=== PATIENT | female | born 1980 | race Caucasian/White ===

== ENCOUNTER 2016-09-29 15:22 | Outpatient (CLI) | payer OTHER | END 2016-09-29 15:23 | disposition home or self-care (01) | DX: M77.32 Calcaneal spur, left foot (principal) ==

== ENCOUNTER 2016-10-01 10:04 | Outpatient (CLI) | payer OTHER | END 2016-10-01 10:05 | disposition home or self-care (01) | DX: M25.473 Effusion, unspecified ankle (principal) ==

== ENCOUNTER 2016-10-08 14:35 | Outpatient (CLI) | payer OTHER | END 2016-10-08 14:36 | disposition home or self-care (01) | DX: E11.9 Type 2 diabetes mellitus without complications (principal); M05.9 Rheumatoid arthritis with rheumatoid factor, unspecified; M25.473 Effusion, unspecified ankle ==

== ENCOUNTER 2017-07-05 09:36 | Outpatient (CLI) | payer OTHER ==
[2017-07-05 12:59] LABS: BASOPHILS # (AUTO) 0.1 10^3/uL (0.0-0.1); BASOPHILS % (AUTO) 0.5 %; EOSINOPHILS # (AUTO) 0.7 10^3/uL (0.0-0.7); HGB - HEMOGLOBIN 12.7 g/dL (12.0-16.0); LYMPHOCYTES % (AUTO) 27.5 %; MEAN CORPUSCULAR HEMOGLOBIN 28.9 pg (27.0-31.0); MEAN CORPUSCULAR HGB CONC 33.3 g/dL (32.0-36.0); MEAN CORPUSCULAR VOLUME 86.7 fL (81.0-99.0); MEAN PLATELET VOLUME 9.7 fL (7.9-10.8); MONOCYTES # (AUTO) 0.5 10^3/uL (0.0-1.0); MONOCYTES % (AUTO) 4.2 %; NEUTROPHILS # (AUTO) 6.9 10^3/uL (1.5-6.6); NEUTROPHILS % (AUTO) 61.8 %; PLT - PLATELET COUNT 185 10^3/uL (130-450); RED BLOOD COUNT 4.41 10^6/uL (4.20-5.40); RED CELL DISTRIBUTION WIDTH 13.6 % (12.0-15.0); WHITE BLOOD COUNT 11.1 x10^3/uL (4.8-10.8)
== END 2017-07-05 09:37 | disposition home or self-care (01) ==
LOC: LAB.WCP 09:36
PROVIDERS: ATTEND Family Medicine
DX: N92.0 Excessive and frequent menstruation with regular cycle (principal)
CPT/HCPCS: 36415; 85025

== ENCOUNTER 2017-10-11 08:00 | Outpatient (CLI) | payer OTHER ==
[2017-10-11 19:01] LABS: CALCIUM 9.1 mg/dL (8.5-10.3); CREATININE 0.7 mg/dL (0.4-1.0)
[2017-10-11 19:43] LABS: HB2 TOTAL 15.7 g/dL; HEMOGLOBIN A1C 1.28 g/dL; HEMOGLOBIN A1C % 9.6 % (4.6-6.2)
== END 2017-10-11 08:01 | disposition home or self-care (01) ==
LOC: LAB.WCP 08:00
PROVIDERS: ATTEND Family Medicine
DX: E11.9 Type 2 diabetes mellitus without complications (principal)
CPT/HCPCS: 36415; 80048; 83036

== ENCOUNTER 2018-01-21 07:16 | Outpatient (CLI) | payer OTHER ==
[2018-01-21 13:38] LABS: BASOPHILS # (AUTO) 0.1 10^3/uL (0.0-0.1); BASOPHILS % (AUTO) 0.7 %; EOSINOPHILS # (AUTO) 0.5 10^3/uL (0.0-0.7); EOSINOPHILS % (AUTO) 4.4 %; HGB - HEMOGLOBIN 13.3 g/dL (12.0-16.0); LYMPHOCYTES # (AUTO) 3.3 10^3/uL (1.5-3.5); LYMPHOCYTES % (AUTO) 26.7 %; MEAN CORPUSCULAR HGB CONC 32.9 g/dL (32.0-36.0); MEAN PLATELET VOLUME 10.1 fL (7.9-10.8); MONOCYTES # (AUTO) 0.6 10^3/uL (0.0-1.0); MONOCYTES % (AUTO) 4.5 %; NEUTROPHILS # (AUTO) 7.9 10^3/uL (1.5-6.6); NEUTROPHILS % (AUTO) 63.7 %; PLT - PLATELET COUNT 199 10^3/uL (130-450); RED BLOOD COUNT 4.58 10^6/uL (4.20-5.40); RED CELL DISTRIBUTION WIDTH 13.6 % (12.0-15.0); WHITE BLOOD COUNT 12.4 x10^3/uL (4.8-10.8)
[2018-01-21 13:47] LABS: ALBUMIN 3.2 g/dL (3.2-5.5); ALBUMIN/GLOBULIN RATIO 0.8 (1.0-2.2); ALKALINE PHOSPHATASE 72 IU/L (42-121); ALT ALANINE AMINOTRANSFERASE 21 IU/L (10-60); AST ASPARTATE AMINOTRANSFERASE 19 IU/L (10-42); BILIRUBIN,TOTAL 0.5 mg/dL (0.2-1.0); BUN - BLOOD UREA NITROGEN 13 mg/dL (6-20); CALCIUM 8.7 mg/dL (8.5-10.3); CARBON DIOXIDE - CO2 27 mmol/L (21-32); CHLORIDE 102 mmol/L (101-111); CHOL/HDL RATIO 3.7 (<4.4); CHOLESTEROL 147 mg/dL; CREATININE 0.9 mg/dL (0.4-1.0); GFR - MDRD 70 (>89); GLUCOSE 145 mg/dL (70-100); HDL CHOLESTEROL 40 mg/dL; LDL CHOLESTEROL,CALCULATED 91 mg/dL; LDL/HDL RATIO 2.3 (<4.4); SODIUM 135 mmol/L (135-145); TOTAL PROTEIN 7.2 g/dL (6.7-8.2); VLDL CHOLESTEROL 16 mg/dL
[2018-01-21 13:55] LABS: HB2 TOTAL 14.2 g/dL; HEMOGLOBIN A1C 0.92 g/dL; HEMOGLOBIN A1C % 8.1 % (4.6-6.2)
== END 2018-01-21 07:17 ==
LOC: LAB.WCP 07:16
PROVIDERS: ATTEND Family Medicine
DX: E11.9 Type 2 diabetes mellitus without complications (principal)
CPT/HCPCS: 36415; 80053; 80061; 82043; 83036; 83721; 84443; 85025

== ENCOUNTER 2018-04-09 14:50 | Outpatient (CLI) | payer OTHER ==
[2018-04-09 19:05] LABS: HEMOGLOBIN A1C 0.81 g/dL; HEMOGLOBIN A1C % 7.4 % (4.6-6.2)
== END 2018-04-09 14:51 | disposition home or self-care (01) ==
LOC: LAB.WCP 14:50
PROVIDERS: ATTEND Family Medicine
DX: E11.9 Type 2 diabetes mellitus without complications (principal)
CPT/HCPCS: 36415; 83036

== ENCOUNTER 2018-07-07 12:10 | Outpatient (CLI) | payer OTHER ==
[2018-07-07 13:14] LABS: BASOPHILS % (AUTO) 0.4 %; EOSINOPHILS # (AUTO) 0.3 10^3/uL (0.0-0.7); EOSINOPHILS % (AUTO) 2.4 %; HGB - HEMOGLOBIN 14.3 g/dL (12.0-16.0); LYMPHOCYTES # (AUTO) 3.4 10^3/uL (1.5-3.5); LYMPHOCYTES % (AUTO) 24.5 %; MEAN CORPUSCULAR HEMOGLOBIN 29.6 pg (27.0-31.0); MEAN PLATELET VOLUME 8.9 fL (7.9-10.8); MONOCYTES # (AUTO) 0.5 10^3/uL (0.0-1.0); MONOCYTES % (AUTO) 3.8 %; NEUTROPHILS # (AUTO) 9.5 10^3/uL (1.5-6.6); NEUTROPHILS % (AUTO) 68.9 %; PLT - PLATELET COUNT 197 10^3/uL (130-450); RED BLOOD COUNT 4.81 10^6/uL (4.20-5.40); WHITE BLOOD COUNT 13.7 x10^3/uL (4.8-10.8)
[2018-07-07 13:24] LABS: ALBUMIN 3.7 g/dL (3.2-5.5); ALKALINE PHOSPHATASE 82 IU/L (42-121); ALT ALANINE AMINOTRANSFERASE 26 IU/L (10-60); AST ASPARTATE AMINOTRANSFERASE 23 IU/L (10-42); BILIRUBIN,TOTAL 0.6 mg/dL (0.2-1.0); BUN - BLOOD UREA NITROGEN 16 mg/dL (6-20); CALCIUM 8.9 mg/dL (8.5-10.3); CARBON DIOXIDE - CO2 26 mmol/L (21-32); CHLORIDE 102 mmol/L (101-111); CHOLESTEROL 180 mg/dL; CREATININE 0.7 mg/dL (0.4-1.0); GFR - MDRD 94 (>89); GLUCOSE 174 mg/dL (70-100); HDL CHOLESTEROL 45 mg/dL; LDL CHOLESTEROL,CALCULATED 116 mg/dL; LDL/HDL RATIO 2.6 (<4.4); SODIUM 136 mmol/L (135-145); TOTAL PROTEIN 7.5 g/dL (6.7-8.2); URIC ACID 4.4 mg/dL (2.6-7.2); VLDL CHOLESTEROL 19 mg/dL
[2018-07-07 13:28] LABS: HB2 TOTAL 14.7 g/dL; HEMOGLOBIN A1C 1.01 g/dL; HEMOGLOBIN A1C % 8.4 % (4.6-6.2)
== END 2018-07-07 12:11 | disposition home or self-care (01) ==
LOC: LAB 12:10
PROVIDERS: ATTEND Family Medicine
DX: E11.9 Type 2 diabetes mellitus without complications (principal); M05.9 Rheumatoid arthritis with rheumatoid factor, unspecified
CPT/HCPCS: 36415; 80053; 80061; 82043; 83036; 83721; 84443; 84550; 85025; 85651; 86140

== ENCOUNTER 2018-12-15 08:00 | Outpatient (CLI) | payer OTHER ==
[2018-12-15 19:01] LABS: CREATININE 0.8 mg/dL (0.4-1.0)
[2018-12-15 19:02] LABS: CALCIUM 9.2 mg/dL (8.5-10.3)
[2018-12-15 19:41] LABS: HEMOGLOBIN A1C 1.19 g/dL; HEMOGLOBIN A1C % 9.9 % (4.6-6.2)
== END 2018-12-15 23:59 | disposition home or self-care (01) ==
LOC: LAB.WCP 08:00
PROVIDERS: ATTEND Family Medicine
DX: E11.9 Type 2 diabetes mellitus without complications (principal)
CPT/HCPCS: 36415; 80048; 83036

== ENCOUNTER 2019-03-20 09:30 | Outpatient (CLI) | payer OTHER ==
--- NOTE | 2019-03-20 12:10 | XRAY Report ---
Reason: KNEE PAIN, RIGHT Procedure Date: 03/20/2019 Accession Number: [id number] / [id number] Procedure: XR - Knee 2 View RT CPT Code: FULL RESULT: EXAM: RIGHT KNEE RADIOGRAPHY EXAM DATE: 03/20/2019 09:47 AM. CLINICAL HISTORY: Knee pain, right. COMPARISON: None. TECHNIQUE: 2 views. FINDINGS: Bones: Small enthesophyte off the superior aspect of the patella. No fractures or bone lesions. Joints: Normal. No effusion. No subluxations. Soft Tissues: Normal. No soft tissue swelling. IMPRESSION: 1. No acute abnormality seen in the right knee. 2. Small enthesophyte off the superior aspect of the patella, correlate for signs of quadriceps tendinitis. RADIA
== END 2019-03-20 09:31 | disposition home or self-care (01) ==
LOC: DI 09:30
PROVIDERS: ATTEND Family Medicine
DX: M25.561 Pain in right knee (principal); M77.9 Enthesopathy, unspecified

== ENCOUNTER 2019-12-31 16:22 | Outpatient (CLI) | payer OTHER ==
[2019-12-31 18:31] LABS: BASOPHILS # (AUTO) 0.1 10^3/uL (0.0-0.1); BASOPHILS % (AUTO) 0.4 %; EOSINOPHILS # (AUTO) 0.6 10^3/uL (0.0-0.7); EOSINOPHILS % (AUTO) 3.9 %; HGB - HEMOGLOBIN 14.2 g/dL (12.0-16.0); LYMPHOCYTES # (AUTO) 4.3 10^3/uL (1.5-3.5); LYMPHOCYTES % (AUTO) 29.5 %; MEAN CORPUSCULAR HEMOGLOBIN 28.8 pg (27.0-31.0); MEAN CORPUSCULAR VOLUME 87.2 fL (81.0-99.0); MEAN PLATELET VOLUME 11.5 fL (7.9-10.8); MONOCYTES # (AUTO) 0.6 10^3/uL (0.0-1.0); NEUTROPHILS # (AUTO) 8.9 10^3/uL (1.5-6.6); NEUTROPHILS % (AUTO) 61.8 %; PLT - PLATELET COUNT 246 10^3/uL (130-450); RED BLOOD COUNT 4.93 10^6/uL (4.20-5.40); RED CELL DISTRIBUTION WIDTH 12.6 % (12.0-15.0); WHITE BLOOD COUNT 14.4 x10^3/uL (4.8-10.8)
[2020-01-01 13:55] LABS: RHEUMATOID FACTOR NEGATIVE (Negative)
[2020-01-04 15:24] LABS: ANA SCREEN NEGATIVE (NEGATIVE)
== END 2019-12-31 23:59 | disposition home or self-care (01) ==
LOC: LAB.WCP 16:22
PROVIDERS: ATTEND Nurse Practitioner
DX: M35.3 Polymyalgia rheumatica (principal); M08.00 Unspecified juvenile rheumatoid arthritis of unspecified site
CPT/HCPCS: 36415; 85025; 85651; 86038; 86140; 86430

== ENCOUNTER 2020-02-24 15:30 | Outpatient (CLI) | payer OTHER ==
[2020-02-24 18:41] LABS: BASOPHILS # (AUTO) 0.1 10^3/uL (0.0-0.1); BASOPHILS % (AUTO) 0.4 %; EOSINOPHILS # (AUTO) 0.5 10^3/uL (0.0-0.7); EOSINOPHILS % (AUTO) 4.1 %; HGB - HEMOGLOBIN 13.7 g/dL (12.0-16.0); LYMPHOCYTES # (AUTO) 3.8 10^3/uL (1.5-3.5); LYMPHOCYTES % (AUTO) 31.8 %; MEAN CORPUSCULAR HEMOGLOBIN 28.8 pg (27.0-31.0); MEAN CORPUSCULAR HGB CONC 31.8 g/dL (32.0-36.0); MEAN CORPUSCULAR VOLUME 90.5 fL (81.0-99.0); MEAN PLATELET VOLUME 11.3 fL (7.9-10.8); MONOCYTES # (AUTO) 0.6 10^3/uL (0.0-1.0); MONOCYTES % (AUTO) 5.1 %; NEUTROPHILS % (AUTO) 58.3 %; PLT - PLATELET COUNT 247 10^3/uL (130-450); RED BLOOD COUNT 4.76 10^6/uL (4.20-5.40); RED CELL DISTRIBUTION WIDTH 12.5 % (12.0-15.0); WHITE BLOOD COUNT 12.1 x10^3/uL (4.8-10.8)
[2020-02-24 18:55] LABS: CREATININE,URINE 80.3 mg/dL; MICROALBUMIN,URINE 0.4 mg/dL (0-300.0)
[2020-02-24 19:12] LABS: ALBUMIN 3.7 g/dL (3.2-5.5); ALBUMIN/GLOBULIN RATIO 0.9 (1.0-2.2); ALKALINE PHOSPHATASE 92 IU/L (42-121); ALT ALANINE AMINOTRANSFERASE 32 IU/L (10-60); AST ASPARTATE AMINOTRANSFERASE 31 IU/L (10-42); BILIRUBIN,TOTAL 0.3 mg/dL (0.2-1.0); BUN - BLOOD UREA NITROGEN 13 mg/dL (6-20); CALCIUM 9.3 mg/dL (8.5-10.3); CARBON DIOXIDE - CO2 27 mmol/L (21-32); CHLORIDE 101 mmol/L (101-111); CHOL/HDL RATIO 3.9 (<4.4); CHOLESTEROL 177 mg/dL; CREATININE 0.8 mg/dL (0.4-1.0); GLUCOSE 285 mg/dL (70-100); HDL CHOLESTEROL 45 mg/dL; LDL CHOLESTEROL,CALCULATED 100 mg/dL; LDL/HDL RATIO 2.2 (<4.4); SODIUM 136 mmol/L (135-145); TOTAL PROTEIN 7.6 g/dL (6.7-8.2); VLDL CHOLESTEROL 32 mg/dL
[2020-02-24 19:27] LABS: HB2 TOTAL 14.4 g/dL; HEMOGLOBIN A1C 1.24 g/dL
== END 2020-02-24 15:31 | disposition home or self-care (01) ==
LOC: LAB.WCP 15:30
PROVIDERS: ATTEND Family Medicine
DX: E11.9 Type 2 diabetes mellitus without complications (principal)
CPT/HCPCS: 36415; 80053; 80061; 82043; 82570; 83036; 83721; 84443; 85025

== ENCOUNTER 2020-07-26 08:00 | Outpatient (CLI) | payer OTHER ==
[2020-07-26 19:35] LABS: ALBUMIN 3.7 g/dL (3.2-5.5); ALBUMIN/GLOBULIN RATIO 0.9 (1.0-2.2); ALKALINE PHOSPHATASE 80 IU/L (42-121); ALT ALANINE AMINOTRANSFERASE 23 IU/L (10-60); AST ASPARTATE AMINOTRANSFERASE 18 IU/L (10-42); BILIRUBIN,TOTAL 0.5 mg/dL (0.2-1.0); BUN - BLOOD UREA NITROGEN 18 mg/dL (6-20); CALCIUM 9.3 mg/dL (8.5-10.3); CARBON DIOXIDE - CO2 25 mmol/L (21-32); CHLORIDE 99 mmol/L (101-111); CHOL/HDL RATIO 3.6 (<4.4); CHOLESTEROL 185 mg/dL; CREATININE 0.9 mg/dL (0.4-1.0); GLUCOSE 209 mg/dL (70-100); HDL CHOLESTEROL 51 mg/dL; LDL CHOLESTEROL,CALCULATED 108 mg/dL; LDL/HDL RATIO 2.1 (<4.4); TOTAL PROTEIN 7.8 g/dL (6.7-8.2); VLDL CHOLESTEROL 26 mg/dL
[2020-07-26 19:36] LABS: CREATININE,URINE 214.5 mg/dL; MICROALBUM/CREATININE RATIO,UR 7.5 ug/mg (<30.0); MICROALBUMIN,URINE 1.6 mg/dL (0-300.0)
[2020-07-26 19:47] LABS: HEMOGLOBIN A1c% 9.4 % (4.27-6.07)
== END 2020-07-26 08:01 | disposition home or self-care (01) ==
LOC: LAB.WCP 08:00
PROVIDERS: ATTEND Family Medicine
DX: E11.9 Type 2 diabetes mellitus without complications (principal)
CPT/HCPCS: 36415; 80053; 80061; 82043; 82570; 83036; 83721; 84443

== ENCOUNTER 2020-10-28 08:00 | Outpatient (CLI) | payer OTHER ==
[2020-10-28 18:02] LABS: CALCIUM 9.2 mg/dL (8.5-10.3); CREATININE 0.8 mg/dL (0.4-1.0); POTASSIUM 4.5 mmol/L (3.5-5.0)
[2020-10-28 20:50] LABS: ESTIMATED AVERAGE GLUCOSE 192 mg/dL (70-100); HEMOGLOBIN A1c% 8.3 % (4.27-6.07)
== END 2020-10-28 23:59 | disposition home or self-care (01) ==
LOC: LAB.WCP 08:00
PROVIDERS: ATTEND Family Medicine
DX: E11.9 Type 2 diabetes mellitus without complications (principal)
CPT/HCPCS: 36415; 80048; 83036

== ENCOUNTER 2021-02-10 08:00 | Outpatient (CLI) | payer OTHER ==
[2021-02-10 17:42] LABS: BASOPHILS # (AUTO) 0.1 10^3/uL (0.0-0.1); BASOPHILS % (AUTO) 0.4 %; EOSINOPHILS # (AUTO) 0.2 10^3/uL (0.0-0.7); EOSINOPHILS % (AUTO) 1.4 %; HCT - HEMATOCRIT 42.5 % (37.0-47.0); HGB - HEMOGLOBIN 13.5 g/dL (12.0-16.0); LYMPHOCYTES # (AUTO) 3.3 10^3/uL (1.5-3.5); LYMPHOCYTES % (AUTO) 27.3 %; MEAN CORPUSCULAR HEMOGLOBIN 28.5 pg (27.0-31.0); MEAN CORPUSCULAR HGB CONC 31.8 g/dL (32.0-36.0); MEAN CORPUSCULAR VOLUME 89.7 fL (81.0-99.0); MEAN PLATELET VOLUME 11.2 fL (7.9-10.8); MONOCYTES # (AUTO) 0.5 10^3/uL (0.0-1.0); MONOCYTES % (AUTO) 3.8 %; NEUTROPHILS % (AUTO) 66.5 %; PLT - PLATELET COUNT 200 10^3/uL (130-450); RED BLOOD COUNT 4.74 10^6/uL (4.20-5.40); RED CELL DISTRIBUTION WIDTH 12.6 % (12.0-15.0)
[2021-02-10 18:05] LABS: ALBUMIN 3.7 g/dL (3.2-5.5); ALBUMIN/GLOBULIN RATIO 0.9 (1.0-2.2); ALKALINE PHOSPHATASE 73 IU/L (42-121); ALT ALANINE AMINOTRANSFERASE 24 IU/L (10-60); AST ASPARTATE AMINOTRANSFERASE 21 IU/L (10-42); BILIRUBIN,TOTAL 0.6 mg/dL (0.2-1.0); BUN - BLOOD UREA NITROGEN 18 mg/dL (6-20); CALCIUM 8.9 mg/dL (8.5-10.3); CARBON DIOXIDE - CO2 26 mmol/L (21-32); CHLORIDE 97 mmol/L (101-111); CHOL/HDL RATIO 3.8 (<4.4); CHOLESTEROL 165 mg/dL; GFR - MDRD 61 (>89); GLUCOSE 246 mg/dL (70-100); HDL CHOLESTEROL 44 mg/dL; LDL CHOLESTEROL,CALCULATED 90 mg/dL; POTASSIUM 4.3 mmol/L (3.5-5.0); SODIUM 133 mmol/L (135-145); TOTAL PROTEIN 7.6 g/dL (6.7-8.2); TRIGLYCERIDES 155 mg/dL; VLDL CHOLESTEROL 31 mg/dL
[2021-02-10 20:28] LABS: ESTIMATED AVERAGE GLUCOSE 183 mg/dL (70-100)
== END 2021-02-10 23:59 | disposition home or self-care (01) ==
LOC: LAB.WCP 08:00
PROVIDERS: ATTEND Family Medicine
DX: E11.9 Type 2 diabetes mellitus without complications (principal)
CPT/HCPCS: 36415; 80053; 80061; 83036; 83721; 85025

== ENCOUNTER 2021-02-13 08:00 | Outpatient (CLI) | payer OTHER ==
[2021-02-13 21:07] LABS: CHLAMYDIA TRACHOMATIS DNA NEGATIVE (NEGATIVE); NEISSERIA GONORRHOEAE DNA NEGATIVE (NEGATIVE); TRICHOMONAS VAGINALIS DNA NEGATIVE (NEGATIVE)
[2021-02-14 13:05] LABS: HEPATITIS C ANTIBODY NON-REACTIVE (NON-REACTIVE)
[2021-02-14 13:36] LABS: HIV AG/AB 4TH GEN NON-REACTIVE (NON-REACTIVE)
== END 2021-02-13 23:59 | disposition home or self-care (01) ==
LOC: LAB.WCP 08:00
PROVIDERS: ATTEND Family Medicine
DX: Z11.3 Encounter for screening for infections with a predominantly sexual mode of transmission (principal)
CPT/HCPCS: 36415; 86592; 86803; 87389; 87491; 87591; 87661

== ENCOUNTER 2021-06-14 06:24 | Day surgery (SDC) | payer OTHER ==
[2021-06-14] MEDS ORDERED: LACTATED RINGERS 1,000 ML IV ONE ×2 (06:27→08:31)
[2021-06-14] MEDS ORDERED: PROPOFOL 500 MG/50 ML 500 MG/50 ML VIAL ONE (07:14)
[2021-06-14] MEDS ORDERED: MIDAZOLAM 2 MG/2 ML VIAL ONE (07:17)
[2021-06-14] MEDS ORDERED: LIDOCAINE-MPF 2% 5 ML VIAL ONE (07:18)
--- NOTE | 2021-06-14 07:23 | ANESTHESIA ---
Pre-Anesthesia VS, & Labs - Diagnosis GERD, loose stool - Procedure EGD, Colonoscopy Vital Signs: Temp Pulse Resp BP Pulse Ox 36.4 C L 78 20 152/87 H 96 06/14/21 06:28 06/14/21 06:28 06/14/21 06:28 06/14/21 06:28 06/14/21 06:28 Height: 5 ft 3 in Weight (kg): 99.6 kg Body Mass Index: 38.9 BMI Classification: Obese - NPO >8 hours - Is Patient ?: No - Lab Results Current Lab Results: Laboratory Tests 06/14/21 06:48: POC Whole Bld Glucose 188 H Home Medications and Allergies Home Medications: Ambulatory Orders Acetaminophen [Tylenol Arthritis] 1,300 mg PO BID 06/12/21 Diclofenac Sodium [Diclofenac Sodium 3%] 1 applic TP PRN PRN 06/12/21 Fexofenadine/Pseudoephedrine [Marissa-D 24 Hour Tablet] 1 each PO DAILY 06/12/21 Folic Acid 1 mg PO DAILY 06/12/21 Gabapentin [Neurontin] 200 mg PO BID 06/12/21 Insulin 70/30 Human [Humulin 70-30 Vial] 40 - 50 unit SQ BID 06/12/21 Meloxicam [Mobic] 1 tablet PO DAILY 06/12/21 Methotrexate Sodium/Pf [Methotrexate 25 mg/ml Vial] 25 mg IJ OAW 06/12/21 Montelukast [Singulair] 10 mg PO DAILY 06/12/21 Omeprazole 20 mg PO DAILY 06/12/21 Sertraline [Zoloft] 25 mg PO DAILY 06/12/21 Trazodone HCl 100 mg PO QPM 06/12/21 Acetaminophen [Tylenol Arthritis] 1,300 mg PO BID 06/12/21 Diclofenac Sodium [Diclofenac Sodium 3%] 1 applic TP PRN PRN 06/12/21 Fexofenadine/Pseudoephedrine [Marissa-D 24 Hour Tablet] 1 each PO DAILY 06/12/21 Folic Acid 1 mg PO DAILY 06/12/21 Gabapentin [Neurontin] 200 mg PO BID 06/12/21 Insulin 70/30 Human [Humulin 70-30 Vial] 40 - 50 unit SQ BID 06/12/21 Meloxicam [Mobic] 1 tablet PO DAILY 06/12/21 Methotrexate Sodium/Pf [Methotrexate 25 mg/ml Vial] 25 mg IJ OAW 06/12/21 Montelukast [Singulair] 10 mg PO DAILY 06/12/21 Omeprazole 20 mg PO DAILY 06/12/21 Sertraline [Zoloft] 25 mg PO DAILY 06/12/21 Trazodone HCl 100 mg PO QPM 06/12/21 Allergies/Adverse Reactions: Allergies Allergy/AdvReac Type Severity Reaction Status Date / Time Latex, Natural Rubber AdvReac Intermediate Rash Verified 01/17/16 05:21 Anes History & Medical History - Anesthetic History Anesthesia Complications: reports: No previous complications Family history of Anesthesia Complications: Denies Family history of Malignant Hyperthermia: Denies - Medical History Cardiovascular: reports: Arrhythmia Pulmonary: reports: Asthma Gastrointestinal: reports: GERD, Chronic diarrhea Urinary: reports: Incontinence Musculoskeletal: reports: Fibromyalgia, Other Endocrine/Autoimmune: reports: Type 2 diabetes Skin: reports: Eczema Smoking Status: Former smoker - Surgical History Gynecologic: reports: section, 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, 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 Exam General: Alert, Oriented x3, Cooperative Dental: WNL Mouth Openin Fingerbreadth Neck Mobility: Normal Mallampati classification: II Thyromental Distance: 4-6 cm Respiratory: Lungs clear Cardiovascular: Regular rate Plan Anesthesia Type: General, Total IV Consent for Procedure(s) Verified and Reviewed: Yes Code Status: Attempt Resuscitation ASA classification: 2-Mild systemic disease Is this case an emergency?: No
[2021-06-14] MEDS ORDERED: PROPOFOL 200 MG/20 ML VIAL IVP ONE (08:16)
[2021-06-14 08:57] VITALS: BP 109/94
--- NOTE | 2021-06-14 16:01 | ANESTHESIA POST OP EVALUATION ---
Anesthesia Post Eval - Post Anesthesia Eval Vitals: Last Vital Signs Temp 36.7 C 06/14/21 08:56 Pulse 61 06/14/21 08:56 Resp 19 06/14/21 08:56 BP 109/94 H 06/14/21 08:56 Pulse Ox 100 06/14/21 08:56 CV Function Including HR & BP: Stable Pain Control: Satisfactory Nausea & Vomiting: Negative Mental Status: Baseline Respiratory Status: Airway Patent Hydration Status: Satisfactory Anesthesia Complications: None
== END 2021-06-14 06:25 | disposition home or self-care (01) ==
LOC: SDS 06:24
PROVIDERS: ATTEND Surgery
PROC: 0DBP8ZX Excision of Rectum, Via Natural or Artificial Opening Endoscopic, Diagnostic (ICD-10-PCS; 2021-06-14)
PROC: 0DBF8ZX Excision of Right Large Intestine, Via Natural or Artificial Opening Endoscopic, Diagnostic (ICD-10-PCS; 2021-06-14)
PROC: 0DBG8ZX Excision of Left Large Intestine, Via Natural or Artificial Opening Endoscopic, Diagnostic (ICD-10-PCS; 2021-06-14)
PROC: 0DBB8ZX Excision of Ileum, Via Natural or Artificial Opening Endoscopic, Diagnostic (ICD-10-PCS; 2021-06-14)
PROC: 0DB98ZX Excision of Duodenum, Via Natural or Artificial Opening Endoscopic, Diagnostic (ICD-10-PCS; 2021-06-14)
PROC: 0DB78ZX Excision of Stomach, Pylorus, Via Natural or Artificial Opening Endoscopic, Diagnostic (ICD-10-PCS; 2021-06-14)
PROC: 0DB38ZX Excision of Lower Esophagus, Via Natural or Artificial Opening Endoscopic, Diagnostic (ICD-10-PCS; 2021-06-14)
PROC: 0DBK8ZZ Excision of Ascending Colon, Via Natural or Artificial Opening Endoscopic (ICD-10-PCS; principal; 2021-06-14 07:30)
PROC: 0DBL8ZX Excision of Transverse Colon, Via Natural or Artificial Opening Endoscopic, Diagnostic (ICD-10-PCS; 2021-06-14 07:30)
DX: R19.5 Other fecal abnormalities (principal); K21.9 Gastro-esophageal reflux disease without esophagitis; D12.3 Benign neoplasm of transverse colon; D12.2 Benign neoplasm of ascending colon; K29.50 Unspecified chronic gastritis without bleeding; K58.9 Irritable bowel syndrome, unspecified; F41.1 Generalized anxiety disorder; E66.9 Obesity, unspecified; Z68.38 Body mass index [BMI] 38.0-38.9, adult; Z87.891 Personal history of nicotine dependence
CPT/HCPCS: 43239; 45380; J7120

== ENCOUNTER 2021-09-07 14:21 | Outpatient (CLI) | payer OTHER ==
[2021-09-07 18:04] LABS: BASOPHILS % (AUTO) 0.4 %; EOSINOPHILS % (AUTO) 1.9 %; HCT - HEMATOCRIT 45.6 % (37.0-47.0); HGB - HEMOGLOBIN 15.2 g/dL (12.0-16.0); LYMPHOCYTES % (AUTO) 34.4 %; MEAN CORPUSCULAR HEMOGLOBIN 29.7 pg (27.0-31.0); MEAN CORPUSCULAR HGB CONC 33.3 g/dL (32.0-36.0); MEAN CORPUSCULAR VOLUME 89.2 fL (81.0-99.0); MEAN PLATELET VOLUME 11.5 fL (7.9-10.8); MONOCYTES % (AUTO) 4.4 %; NEUTROPHILS % (AUTO) 58.7 %; PLT - PLATELET COUNT 206 10^3/uL (130-450); RED BLOOD COUNT 5.11 10^6/uL (4.20-5.40); RED CELL DISTRIBUTION WIDTH 12.3 % (12.0-15.0)
[2021-09-07 18:17] LABS: ABNORMAL LYMPHS % (MANUAL) 0 %; BAND NEUTROPHILS % (MANUAL) 0 %
[2021-09-07 18:19] LABS: ALBUMIN 4.1 g/dL (3.2-5.5); ALKALINE PHOSPHATASE 92 IU/L (42-121); ALT ALANINE AMINOTRANSFERASE 27 IU/L (10-60); AST ASPARTATE AMINOTRANSFERASE 22 IU/L (10-42); BILIRUBIN,TOTAL 0.7 mg/dL (0.2-1.0); BUN - BLOOD UREA NITROGEN 18 mg/dL (6-20); CALCIUM 9.1 mg/dL (8.5-10.3); CARBON DIOXIDE - CO2 28 mmol/L (21-32); CHLORIDE 96 mmol/L (101-111); CHOL/HDL RATIO 3.6 (<4.4); CHOLESTEROL 185 mg/dL; CREATININE 0.7 mg/dL (0.4-1.0); GFR - MDRD 92 (>89); GLUCOSE 160 mg/dL (70-100); HDL CHOLESTEROL 52 mg/dL; LDL CHOLESTEROL,CALCULATED 101 mg/dL; LDL/HDL RATIO 1.9 (<4.4); MICROALBUMIN,URINE 1.8 mg/dL (0-300.0); POTASSIUM 4.3 mmol/L (3.5-5.0); SODIUM 134 mmol/L (135-145); TOTAL PROTEIN 8.2 g/dL (6.7-8.2); TRIGLYCERIDES 160 mg/dL; VLDL CHOLESTEROL 32 mg/dL
[2021-09-07 19:07] LABS: EOSINOPHILS # (MANUAL) 0.6 10^3/uL (0-0.7); LYMPHOCYTES # (MANUAL) 5.4 10^3/uL (1.5-3.5); LYMPHOCYTES % (MANUAL) 34 %; PLATELET ESTIMATE, MANUAL NORMAL (130-450,000) (NORMAL); PLATELET MORPHOLOGY NORMAL APPEARANCE (NORMAL); RBC MORPHOLOGY (MULTIPLE) NORMAL APPEARANCE (NORMAL); WBC MORPHOLOGY (MULTIPLE) NORMAL APPEARANCE (NORMAL)
[2021-09-07 19:08] LABS: DIFFERENTIAL COMMENT MANUAL DIFFERENTIAL
[2021-09-07 20:35] LABS: ESTIMATED AVERAGE GLUCOSE 197 mg/dL (70-100); HEMOGLOBIN A1c% 8.5 % (4.27-6.07)
== END 2021-09-07 14:22 | disposition home or self-care (01) ==
LOC: LAB.N 14:21
PROVIDERS: ATTEND Family Medicine
DX: E11.9 Type 2 diabetes mellitus without complications (principal)
CPT/HCPCS: 36415; 80053; 80061; 82043; 82570; 83036; 83721; 85025

== ENCOUNTER 2021-09-20 08:32 | Emergency (ER) | payer OTHER ==
[2021-09-20] MEDS ORDERED: CHERRY SYRUP 10 ML UDC PO ONE (08:50)
[2021-09-20] MEDS ORDERED: diphenhydrAMINE INJ 50 MG/ML VIAL IM STA (08:50)
[2021-09-20] MEDS ORDERED: DEXAMETHASONE 10 MG/ML VIAL PO STA (08:50)
[2021-09-20] MEDS ORDERED: SILVER NITRATE APPLICATOR TOP STA (09:01)
--- NOTE | 2021-09-20 09:01 | ED Physician Documentation ---
History of Present Illness - Stated complaint Stated Complaint: HIGH BP,SWOLLEN FACE - History obtained from History obtained from: Patient - History of Present Illness Timing: Today - Additonal information Additional information: 41-year-old female who has a lot of issues with allergy and is on a number of medications for allergy, awoke this morning with a swollen face. She does not have any difficulty breathing. She does not have swelling to her lips or pharynx. She has recently been started on losartan about 1 week ago for hypertension.She did not feel like this was an allergic reaction as she does not have any itching to her face. She does have some watering to her eyes. She feels the swelling is mostly around her eyes and not her cheeks lips or face otherwise. Review of Systems Constitutional: denies: Fever Eyes: denies: Decreased vision Ears: denies: Ear pain Nose: denies: Congestion Throat: denies: Sore throat Cardiac: denies: Chest pain / pressure, Palpitations Respiratory: denies: Dyspnea, Cough GI: denies: Abdominal Pain, Nausea, Vomiting, Constipation, Diarrhea : denies: Dysuria, Frequency Skin: denies: Rash Musculoskeletal: denies: Neck pain, Back pain, Extremity pain PD PAST MEDICAL HISTORY - Past Medical History Cardiovascular: Arrhythmia Respiratory: Asthma Endocrine/Autoimmune: Type 2 diabetes GI: GERD, Chronic diarrhea : Incontinence HEENT: None Psych: Anxiety, Panic attacks Musculoskeletal: Fibromyalgia, Other Derm: Eczema - Past Surgical History 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, 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, 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 - Present Medications Home Medications: Ambulatory Orders Medication Instructions Recorded Confirmed Acetaminophen [Tylenol Arthritis] 1,300 mg PO BID 06/12/21 09/20/21 Diclofenac Sodium [Diclofenac 1 applic TP PRN PRN 06/12/21 09/20/21 Sodium 3%] Fexofenadine/Pseudoephedrine 1 each PO DAILY 06/12/21 09/20/21 [Marissa-D 24 Hour Tablet] Folic Acid 1 mg PO DAILY 06/12/21 09/20/21 Insulin 70/30 Human [Humulin 70-30 40 - 50 unit SQ BID 06/12/21 09/20/21 Vial] Meloxicam [Mobic] 1 tablet PO DAILY 06/12/21 09/20/21 Methotrexate Sodium/Pf 25 mg IJ OAW 06/12/21 09/20/21 [Methotrexate 25 mg/ml Vial] Montelukast [Singulair] 10 mg PO DAILY 06/12/21 09/20/21 Omeprazole 20 mg PO DAILY 06/12/21 09/20/21 Trazodone HCl 100 mg PO QPM 06/12/21 09/20/21 DULoxetine [Cymbalta] 30 mg PO DAILY 09/20/21 09/20/21 Losartan Potassium [Cozaar] 100 mg PO DAILY 09/20/21 09/20/21 - Allergies Allergies/Adverse Reactions: Allergies Allergy/AdvReac Type Severity Reaction Status Date / Time Latex, Natural Rubber AdvReac Intermediate Rash Verified 09/20/21 08:44 - Social History Does the pt smoke?: No Smoking Status: Former smoker Does the pt drink ETOH?: No Does the pt have substance abuse?: No - Immunizations Immunizations are current?: Yes - POLST Patient has POLST: No PD ED PE NORMAL - Vitals Vital signs reviewed: Yes (Hypertensive) - General General: Alert and oriented X 3, No acute distress, Well developed/nourished - HEENT HEENT: Atraumatic, PERRL, EOMI, Moist mucous membranes, Pharynx benign, Other (There is the appearance of mid facial swelling especially to the eyelids. With the eyes open less than 20% of the iris is visible .) - Neck Neck: Supple, no meningeal sign, No bony TTP - Cardiac Cardiac: RRR, No murmur - Respiratory Respiratory: No respiratory distress, Clear bilaterally - Abdomen Abdomen: Soft, Non tender - Back Back: No CVA TTP, No spinal TTP - Derm Derm: Normal color, Warm and dry, No rash - Extremities Extremities: No deformity, No edema - Neuro Neuro: Alert and oriented X 3, integration analyst 2-12 intact, No motor deficit, No sensory deficit, Normal speech Eye Opening: Spontaneous Motor: Obeys Commands Verbal: Oriented GCS Score: 15 - Psych Psych: Normal mood, Normal affect Results - Vitals Vitals: Vital Signs - 24 hr 09/20/21 09/20/21 08:35 10:15 Temperature 36.9 C 36.4 C L Heart Rate 68 58 L Respiratory 23 20 Rate Blood Pressure 154/85 H 147/74 H O2 Saturation 97 97 Oxygen O2 Source Room air - Labs Labs: Laboratory Tests 09/20/21 09/20/21 09/20/21 08:58 08:58 09:05 WBC 11.0 H RBC 4.32 Hgb 12.8 Hct 38.6 MCV 89.4 MCH 29.6 MCHC 33.2 RDW 12.6 Plt Count 177 MPV 9.9 Neut # (Auto) 6.3 Lymph # (Auto) 3.7 H [place] # (Auto) 0.7 Eos # (Auto) 0.3 Baso # (Auto) 0.1 Absolute Nucleated RBC 0.00 Nucleated RBC % 0.0 Sodium 137 Potassium 3.8 Chloride 101 Carbon Dioxide 25 Anion Gap 11.0 BUN 17 Creatinine 0.6 Estimated GFR (MDRD) 110 Glucose 210 H Calcium 8.6 Total Bilirubin 0.5 AST 23 ALT 24 Alkaline Phosphatase 72 Total Protein 6.7 Albumin 3.3 Globulin 3.4 Albumin/Globulin Ratio 1.0 Lipase 35 Urine Color YELLOW Urine Clarity CLEAR Urine pH 6.0 Ur Specific [place] >=1.030 H Urine Protein NEGATIVE Urine Glucose (UA) 500 H Urine Ketones NEGATIVE Urine Occult Blood NEGATIVE Urine Nitrite NEGATIVE Urine Bilirubin NEGATIVE Urine Urobilinogen 0.2 (NORMAL) Ur Leukocyte Esterase NEGATIVE Ur Microscopic Review NOT INDICATED Urine Culture Comments NOT INDICATED PD MEDICAL DECISION MAKING - ED course Complexity details: reviewed old records, reviewed results, re-evaluated patient, considered differential, d/w patient ED course: 41-year-old female with multiple allergies presents to the emergency department today with angioedema to the face and she responds to treatment with de xamethasone and Benadryl. She is on an ARB. We will discontinue the ARB and asked the patient to continue Benadryl 25 mg every 6 for 2 days. I will asked the patient to follow-up with her primary for reinitiation of a new class of antihypertensive. Departure - Departure Disposition: Home, Self Care Clinical Impression: Angio-edema Qualifiers: Encounter type: initial encounter Qualified Code(s): T78.3XXA - Angioneurotic edema, initial encounter Condition: Stable Instructions: ED Angioedema Follow-Up: Manuel Dotson DO [Primary Care Provider] - Comments: Cassi, today it looks like you have angioedema and you are on a class of medications called an ARB. These medications having to do with the angiotensin- converting enzyme pathway are fraught with a complication of an idiopathic angioedema. When this happens the medication needs to be discontinued and this class of medications should be avoided. Angioedema can happen again. The r ecommendation today is to take some Benadryl 25 mg every 6 hours for the next 2 days. Follow-up with Dr. Dotson for initiation of a new antihypertensive medication. Discharge Date/Time: 09/20/21 10:25
[2021-09-20 09:02] LABS: BASOPHILS # (AUTO) 0.1 10^3/uL (0.0-0.1); BASOPHILS % (AUTO) 0.5 %; EOSINOPHILS # (AUTO) 0.3 10^3/uL (0.0-0.7); EOSINOPHILS % (AUTO) 2.8 %; HCT - HEMATOCRIT 38.6 % (37.0-47.0); HGB - HEMOGLOBIN 12.8 g/dL (12.0-16.0); LYMPHOCYTES # (AUTO) 3.7 10^3/uL (1.5-3.5); LYMPHOCYTES % (AUTO) 33.2 %; MEAN CORPUSCULAR HEMOGLOBIN 29.6 pg (27.0-31.0); MEAN CORPUSCULAR HGB CONC 33.2 g/dL (32.0-36.0); MEAN CORPUSCULAR VOLUME 89.4 fL (81.0-99.0); MEAN PLATELET VOLUME 9.9 fL (7.9-10.8); MONOCYTES # (AUTO) 0.7 10^3/uL (0.0-1.0); MONOCYTES % (AUTO) 6.3 %; NEUTROPHILS # (AUTO) 6.3 10^3/uL (1.5-6.6); PLT - PLATELET COUNT 177 10^3/uL (130-450); RED BLOOD COUNT 4.32 10^6/uL (4.20-5.40); RED CELL DISTRIBUTION WIDTH 12.6 % (12.0-15.0)
[2021-09-20 09:16] LABS: ALBUMIN 3.3 g/dL (3.2-5.5); BILIRUBIN,TOTAL 0.5 mg/dL (0.2-1.0); CALCIUM 8.6 mg/dL (8.5-10.3); CREATININE 0.6 mg/dL (0.4-1.0); POTASSIUM 3.8 mmol/L (3.5-5.0); TOTAL PROTEIN 6.7 g/dL (6.7-8.2)
[2021-09-20 09:19] LABS: BILIRUBIN,URINE NEGATIVE (NEGATIVE); GLUCOSE, URINE (UA) 500 mg/dL (NEGATIVE); KETONES,URINE (UA) NEGATIVE (NEGATIVE); LEUKOCYTE ESTERASE, URINE NEGATIVE (NEGATIVE); NITRITE,URINE NEGATIVE (NEGATIVE); OCCULT BLOOD,URINE NEGATIVE (NEGATIVE); PROTEIN,URINE NEGATIVE (NEGATIVE); UROBILINOGEN,URINE 0.2 (NORMAL) E.U./dL (NORMAL)
[2021-09-20 09:26] LABS: CLARITY,URINE CLEAR (CLEAR)
[2021-09-20 10:21] VITALS: BP 147/74
== END 2021-09-20 10:25 | disposition home or self-care (01) ==
LOC: ED 08:32
DX: T78.3XXA Angioneurotic edema, initial encounter (principal); T44.5X5A Adverse effect of predominantly beta-adrenoreceptor agonists, initial encounter; Z87.891 Personal history of nicotine dependence
CPT/HCPCS: 36415; 80053; 81003; 83690; 85025; 96372; 99282; 99283; A9270; J1200; 81001; 87086

== ENCOUNTER 2021-09-25 15:29 | Outpatient (CLI) | payer OTHER ==
[2021-09-25 23:46] LABS: CHLAMYDIA TRACHOMATIS DNA NEGATIVE (NEGATIVE); NEISSERIA GONORRHOEAE DNA NEGATIVE (NEGATIVE); TRICHOMONAS VAGINALIS DNA NEGATIVE (NEGATIVE)
[2021-09-26 12:02] LABS: HEPATITIS C ANTIBODY NON-REACTIVE (NON-REACTIVE)
[2021-09-26 14:10] LABS: HIV AG/AB 4TH GEN NON-REACTIVE (NON-REACTIVE)
[2021-09-27 10:46] LABS: HSV 2 IGG TYPE SPECIFIC AB <0.90 index
== END 2021-09-25 15:30 | disposition home or self-care (01) ==
LOC: LAB.N 15:29
PROVIDERS: ATTEND Family Medicine
DX: L68.0 Hirsutism (principal); Z11.3 Encounter for screening for infections with a predominantly sexual mode of transmission
CPT/HCPCS: 36415; 81599; 84402; 84403; 86592; 86695; 86696; 86803; 87389; 87491; 87591; 87661

== ENCOUNTER 2022-03-11 13:08 | Emergency (ER) | payer OTHER ==
[2022-03-11 13:14] VITALS: BP 151/83
--- NOTE | 2022-03-11 14:17 | ED Physician Documentation ---
History of Present Illness - Stated complaint Stated Complaint: L EYE PX - Chief complaint Chief Complaint: Heent - Additonal information Additional information: 41-year-old female presents to the emergency department for evaluation of bliste ring crusted lesion of her right upper eye that is painful. She thinks it may be a herpes lesion. Symptoms began 2 days ago. She has had similar in the past that self resolved but when she began to understood that it can be herpes that she presents here. She has had no fevers. Some mild eye pain but no vision changes. No loss of vision or photophobia. Review of Systems Constitutional: reports: Reviewed and negative Eyes: reports: Decreased vision, Discharge, Irritation. 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 - Present Medications Home Medications: Ambulatory Orders Medication Instructions Recorded Confirmed Acetaminophen [Tylenol Arthritis] 1,300 mg PO BID 06/12/21 09/20/21 Diclofenac Sodium [Diclofenac 1 applic TP PRN PRN 06/12/21 09/20/21 Sodium 3%] Fexofenadine/Pseudoephedrine 1 each PO DAILY 06/12/21 09/20/21 [Marissa-D 24 Hour Tablet] Folic Acid 1 mg PO DAILY 06/12/21 09/20/21 Insulin 70/30 Human [Humulin 70-30 40 - 50 unit SQ BID 06/12/21 09/20/21 Vial] Meloxicam [Mobic] 1 tablet PO DAILY 06/12/21 09/20/21 Methotrexate Sodium/Pf 25 mg IJ OAW 06/12/21 09/20/21 [Methotrexate 25 mg/ml Vial] Montelukast [Singulair] 10 mg PO DAILY 06/12/21 09/20/21 Omeprazole 20 mg PO DAILY 06/12/21 09/20/21 Trazodone HCl 100 mg PO QPM 06/12/21 09/20/21 DULoxetine [Cymbalta] 30 mg PO DAILY 09/20/21 09/20/21 Losartan Potassium [Cozaar] 100 mg PO DAILY 09/20/21 09/20/21 Valacyclovir HCl [Valtrex] 500 mg PO TID 7 Days #21 tablet 03/11/22 - Allergies Allergies/Adverse Reactions: Allergies Allergy/AdvReac Type Severity Reaction Status Date / Time Latex, Natural Rubber AdvReac Intermediate Rash Verified 03/11/22 13:14 - Social History Does the pt smoke?: No Smoking Status: Former smoker Does the pt drink ETOH?: No Does the pt have substance abuse?: No - Immunizations Immunizations are current?: Yes - POLST Patient has POLST: No PD ED PE EXPANDED - General General: Alert, No acute distress - Eyes Eyes: Left eye (Crusting vesicular lesion left upper medial eyelid. Fluorescein stain negative of eye without findings of dendritic lesions. Generalized conjunctival injection) Results - Vitals Vitals: Vital Signs - 24 hr 03/11/22 13:11 Temperature 36.3 C L Heart Rate 70 Respiratory 16 Rate Blood Pressure 151/83 H O2 Saturation 98 Oxygen O2 Source Room air PD MEDICAL DECISION MAKING - ED course Complexity details: reviewed results, re-evaluated patient, considered differential, d/w patient ED course: 41-year-old female presents to the emergency department for evaluation of what she believes is a herpes and crusted lesion of her Left upper eye that started as a blistering sensation 2 days ago. The fluorescein stain of the eye is negative for dendritic lesions ulcerations or abrasions. I however suspect that this is consistent with a herpetic infection. Patient will be started on oral acyclovir. Given the Close proximity to the self will recommend very close follow-up with her threader operator Dr. Naqvi next week otherwise emergent return precautions discussed Departure - Departure Disposition: 01 Home, Self Care Clinical Impression: Herpes simplex of eyelid Condition: Stable Record reviewed to determine appropriate education?: Yes Prescriptions: Valacyclovir HCl [Valtrex] 500 mg PO TID 7 Days #21 tablet Comments: Berenice you do have a lesion of your left upper eyelid that is consistent with a herpes simplex virus. The fluorescein staining that we did of your eye today however did not reveal anything to suggest a corneal ulceration or dendritic lesions. In order to treat this I have sent a prescription for valacyclovir to the [facility] in [place]. Please begin taking it 3 times a day for the next week. It is important you discuss this ED visit with Dr. Hossein Naqvi your threader operator this week and arrange for sooner follow-up to ensure health of the left eye. Return to the emergency department if you develop suddenly severe worsening pain in the eye or have any loss of vision
== END 2022-03-11 14:40 | disposition home or self-care (01) ==
LOC: ED 13:08
DX: B00.59 Other herpesviral disease of eye (principal); Z87.891 Personal history of nicotine dependence
CPT/HCPCS: 99282

== ENCOUNTER 2022-06-01 08:32 | Emergency (ER) | payer OTHER ==
[2022-06-01 09:27] LABS: BASOPHILS % (AUTO) 0.2 %; EOSINOPHILS % (AUTO) 0.2 %; HCT - HEMATOCRIT 47.9 % (37.0-47.0); LYMPHOCYTES # (AUTO) 0.9 10^3/uL (1.5-3.5); LYMPHOCYTES % (AUTO) 5.2 %; MEAN CORPUSCULAR HGB CONC 33.4 g/dL (32.0-36.0); MEAN CORPUSCULAR VOLUME 92.8 fL (81.0-99.0); MEAN PLATELET VOLUME 10.1 fL (7.9-10.8); MONOCYTES # (AUTO) 0.6 10^3/uL (0.0-1.0); MONOCYTES % (AUTO) 3.4 %; NEUTROPHILS % (AUTO) 90.6 %; PLT - PLATELET COUNT 259 10^3/uL (130-450); RED BLOOD COUNT 5.16 10^6/uL (4.20-5.40); RED CELL DISTRIBUTION WIDTH 12.6 % (12.0-15.0); WHITE BLOOD COUNT 17.6 x10^3/uL (4.8-10.8)
[2022-06-01 09:41] LABS: ALBUMIN 4.1 g/dL (3.2-5.5); BILIRUBIN,TOTAL 0.9 mg/dL (0.2-1.0); CALCIUM 9.7 mg/dL (8.5-10.3); CREATININE 0.9 mg/dL (0.4-1.0); POTASSIUM 4.5 mmol/L (3.5-5.0); TOTAL PROTEIN 8.3 g/dL (6.7-8.2)
[2022-06-01] MEDS ORDERED: ONDANSETRON 4 MG/2 ML VIAL IVP STA ×2 (10:30→13:39)
[2022-06-01] MEDS ORDERED: SODIUM CHLORIDE 0.9% 1,000 ML IV STA ×2 (10:31→13:17)
[2022-06-01 10:45] LABS: B. PARAPERTUSSIS- RESP PCR PAN NOT DETECTED; B. PERTUSSIS- RESP PCR PANEL NOT DETECTED; C. PNEUMONIAE- RESP PCR PANEL NOT DETECTED; CORONAVIRUS 229E-RESP PCR NOT DETECTED; CORONAVIRUS HKU1-RESP PCR NOT DETECTED; CORONAVIRUS NL63-RESP PCR NOT DETECTED; CORONAVIRUS OC43-RESP PCR NOT DETECTED; HUMAN METAPNEUMOVIRUS NOT DETECTED; INFLUENZA A- RESP PCR PANEL NOT DETECTED; INFLUENZA B - RESP PCR PANEL NOT DETECTED; M. PNEUMONIAE- RESP PCR PANEL NOT DETECTED; PARAINFLUENZA VIRUS 1 NOT DETECTED; PARAINFLUENZA VIRUS 2 NOT DETECTED; PARAINFLUENZA VIRUS 3 NOT DETECTED; PARAINFLUENZA VIRUS 4 NOT DETECTED; RHINOVIRUS/ENTEROVIRUS DETECTED; RSV- RESP PCR PANEL NOT DETECTED; SARS-CoV-2 -RESP PCR PANEL NOT DETECTED
--- NOTE | 2022-06-01 11:01 | ED Physician Documentation ---
History of Present Illness - Stated complaint Stated Complaint: NVD - Chief complaint Chief Complaint: Abd Pain - History obtained from History obtained from: Patient - History of Present Illness Timing: Yesterday Pain level max: 6 Pain level now: 5 - Additonal information Additional information: Patient is a 41-year-old female who presents to the emergency department with abdominal pain, nausea, vomiting, diarrhea. This started yesterday. Nothing makes it better. Worse with eating and drinking. Complains of right lower quadrant abdominal pain. Has had chills. No measured fever. Review of Systems Ten Systems: 10 systems reviewed and negative Constitutional: reports: Chills. denies: Fever Nose: denies: Rhinorrhea / runny nose, Congestion Respiratory: denies: Cough GI: reports: Nausea, Vomiting, Diarrhea. 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 - Present Medications Home Medications: Ambulatory Orders Medication Instructions Recorded Confirmed Acetaminophen [Tylenol Arthritis] 1,300 mg PO BID 06/12/21 09/20/21 Diclofenac Sodium [Diclofenac 1 applic TP PRN PRN 06/12/21 09/20/21 Sodium 3%] Fexofenadine/Pseudoephedrine 1 each PO DAILY 06/12/21 09/20/21 [Marissa-D 24 Hour Tablet] Folic Acid 1 mg PO DAILY 06/12/21 09/20/21 Insulin 70/30 Human [Humulin 70-30 40 - 50 unit SQ BID 06/12/21 09/20/21 Vial] Meloxicam [Mobic] 1 tablet PO DAILY 06/12/21 09/20/21 Methotrexate Sodium/Pf 25 mg IJ OAW 06/12/21 09/20/21 [Methotrexate 25 mg/ml Vial] Montelukast [Singulair] 10 mg PO DAILY 06/12/21 09/20/21 Omeprazole 20 mg PO DAILY 06/12/21 09/20/21 Trazodone HCl 100 mg PO QPM 06/12/21 09/20/21 DULoxetine [Cymbalta] 30 mg PO DAILY 09/20/21 09/20/21 Losartan Potassium [Cozaar] 100 mg PO DAILY 09/20/21 09/20/21 Valacyclovir HCl [Valtrex] 500 mg PO TID 7 Days #21 tablet 03/11/22 Ondansetron Odt [Zofran] 4 mg TL Q6H PRN #10 tablet 06/01/22 - Allergies Allergies/Adverse Reactions: Allergies Allergy/AdvReac Type Severity Reaction Status Date / Time Latex, Natural Rubber AdvReac Intermediate Rash Verified 03/11/22 13:14 - Social History Does the pt smoke?: No Smoking Status: Former smoker Does the pt drink ETOH?: No Does the pt have substance abuse?: No - Immunizations Immunizations are current?: Yes - POLST Patient has POLST: No PD ED PE NORMAL - Vitals Vital signs reviewed: Yes - General General: Alert and oriented X 3, No acute distress - HEENT HEENT: Moist mucous membranes - Neck Neck: Supple, no meningeal sign - Cardiac Cardiac: RRR, Strong equal pulses - Respiratory Respiratory: No respiratory distress, Clear bilaterally - Abdomen Abdomen: Soft, Non distended, Other (Mild tender palpation right lower quadrant. No peritoneal signs) - Derm Derm: Warm and dry, No rash - Extremities Extremities: No edema - Neuro Neuro: Alert and oriented X 3 - Psych Psych: Normal mood, Normal affect Results - Vitals Vitals: Vital Signs - 24 hr 06/01/22 06/01/22 06/01/22 09:02 12:54 14:13 Temperature 36.8 C Heart Rate 103 H 104 H 89 Respiratory 16 19 18 Rate Blood Pressure 122/79 124/70 136/78 H O2 Saturation 100 95 99 Oxygen O2 Source Room air - Labs Labs: Laboratory Tests 06/01/22 06/01/22 06/01/22 09:05 09:15 09:23 WBC 17.6 H RBC 5.16 Hgb 16.0 Hct 47.9 H MCV 92.8 MCH 31.0 MCHC 33.4 RDW 12.6 Plt Count 259 MPV 10.1 Neut # (Auto) 16.0 H Lymph # (Auto) 0.9 L [place] # (Auto) 0.6 Eos # (Auto) 0.0 Baso # (Auto) 0.0 Absolute Nucleated RBC 0.00 Nucleated RBC % 0.0 Sodium Potassium Chloride Carbon Dioxide Anion Gap BUN Creatinine Estimated GFR (MDRD) Glucose Calcium Total Bilirubin AST ALT Alkaline Phosphatase Total Protein Albumin Globulin Albumin/Globulin Ratio Lipase Urine Color YELLOW Urine Clarity CLEAR Urine pH 6.0 Ur Specific [place] >=1.030 H Urine Protein TRACE Urine Glucose (UA) 500 H Urine Ketones 15 H Urine Occult Blood NEGATIVE Urine Nitrite NEGATIVE Urine Bilirubin NEGATIVE Urine Urobilinogen 0.2 (NORMAL) Ur Leukocyte Esterase NEGATIVE Ur Microscopic Review NOT INDICATED Urine Culture Comments NOT INDICATED Nasal Adenovirus (PCR) NOT DETECTED Nasal B. parapertussis DNA (PCR) NOT DETECTED Nasal Coronavir 229E PCR NOT DETECTED Nasal Coronavir HKU1 PCR NOT DETECTED Nasal Coronavir NL63 PCR NOT DETECTED Nasal Coronavir OC43 PCR NOT DETECTED Nasal Enterovir/Rhinovir PCR DETECTED A Nasal Influenza B PCR NOT DETECTED Nasal Influenza A PCR NOT DETECTED Nasal Parainfluen 1 PCR NOT DETECTED Nasal Parainfluen 2 PCR NOT DETECTED Nasal Parainfluen 3 PCR NOT DETECTED Nasal Parainfluen 4 PCR NOT DETECTED Nasal RSV (PCR) NOT DETECTED Nasal B.pertussis DNA PCR NOT DETECTED Nasal C.pneumoniae (PCR) NOT DETECTED Oniel Human Metapneumo PCR NOT DETECTED Nasal M.pneumoniae (PCR) NOT DETECTED Nasal SARS-CoV-2 (PCR) NOT DETECTED 06/01/22 09:23 WBC RBC Hgb Hct MCV MCH MCHC RDW Plt Count MPV Neut # (Auto) Lymph # (Auto) [place] # (Auto) Eos # (Auto) Baso # (Auto) Absolute Nucleated RBC Nucleated RBC % Sodium 138 Potassium 4.5 Chloride 95 L Carbon Dioxide 27 Anion Gap 16.0 H BUN 26 H Creatinine 0.9 Estimated GFR (MDRD) 69 L Glucose 285 H Calcium 9.7 Total Bilirubin 0.9 AST 22 ALT 26 Alkaline Phosphatase 91 Total Protein 8.3 H Albumin 4.1 Globulin 4.2 Albumin/Globulin Ratio 1.0 Lipase 33 Urine Color Urine Clarity Urine pH Ur Specific [place] Urine Protein Urine Glucose (UA) Urine Ketones Urine Occult Blood Urine Nitrite Urine Bilirubin Urine Urobilinogen Ur Leukocyte Esterase Ur Microscopic Review Urine Culture Comments Nasal Adenovirus (PCR) Nasal B. parapertussis DNA (PCR) Nasal Coronavir 229E PCR Nasal Coronavir HKU1 PCR Nasal Coronavir NL63 PCR Nasal Coronavir OC43 PCR Nasal Enterovir/Rhinovir PCR Nasal Influenza B PCR Nasal Influenza A PCR Nasal Parainfluen 1 PCR Nasal Parainfluen 2 PCR Nasal Parainfluen 3 PCR Nasal Parainfluen 4 PCR Nasal RSV (PCR) Nasal B.pertussis DNA PCR Nasal C.pneumoniae (PCR) Oniel Human Metapneumo PCR Nasal M.pneumoniae (PCR) Nasal SARS-CoV-2 (PCR) - Rads (name of study) CT abd.pelvis Radiology: Final report received, EMP read contemporaneously, See rad report PD MEDICAL DECISION MAKING - ED course Complexity details: reviewed results, re-evaluated patient, considered differential, d/w patient, d/w family ED course: 41-year-old female presents with nausea, vomiting, diarrhea today. Appears to be a viral gastroenteritis. Positive for enterovirus. CT scan shows a normal appendix. Does have a right-sided ovarian cyst status post hysterectomy. She feels much better after IV fluids, Zofran. Will prescribe antiemetics for home and continue supportive care. We will have her follow-up with her doctor for further care. Patient is well-appearing, nontoxic. Tolerating p.o. without difficulty. Patient counseled regarding signs and symptoms for which I believe and urgent re-evaluation would be necessary. Patient with good understanding of and agreement to plan and is comfortable going home at this time This document was made in part using voice recognition software. While efforts are made to proofread this document, sound alike and grammatical errors may occur. Departure - Departure Disposition: 01 Home, Self Care Clinical Impression: Viral gastroenteritis, Dehydration Condition: Good Instructions: ED Dehydration, ED Gastroenteritis Viral Follow-Up: your,doctor in 1 week if not better [Other] Prescriptions: Ondansetron Odt [Zofran] 4 mg TL Q6H PRN #10 tablet PRN Reason: Nausea / Vomiting Comments: You have tested positive for enterovirus/rhinovirus today. This is likely the cause of your vomiting and diarrhea. Make sure you are drinking plenty of fluids. Return if you worsen. Your CT scan does show a right-sided cyst in the abdomen, likely ovarian. Your prescriptions were sent to [facility] in [place] Discharge Date/Time: 06/01/22 14:14
[2022-06-01] MEDS ORDERED: iohexoL-300 100 ML VIAL IVP ONE (12:48)
--- NOTE | 2022-06-01 13:21 | CT Report ---
PROCEDURE: ABDOMEN/PELVIS W INDICATIONS: RLQ abd pain CONTRAST: 100ml omni 300 TECHNIQUE: After the administration of intravenous contrast, 5 mm thick sections acquired from the diaphragms to the symphysis. 5 mm thick coronal and sagittal reformats were acquired. For radiation dose reducti on, the following was used: automated exposure control, adjustment of mA and/or kV according to norberto ent size. COMPARISON: 06/03/2013. FINDINGS: Image quality: Excellent. ABDOMEN: Lung bases: Lung bases are clear. Heart size is normal. Solid organs: Liver and spleen are normal in size and enhancement. Mild diffuse hepatic steatosis. G allbladder is unremarkable as imaged Biliary system is non dilated. Pancreas enhances normally. No adrenal nodules. Kidneys demonstrate normal size and enhancement, without hydronephrosis. Peritoneum and bowel: Bowel loops demonstrate normal wall thickness and caliber. No free fluid or a ir. A normal appendix is noted. Nodes and vessels: No retroperitoneal or mesenteric adenopathy by size criteria. Aorta and inferior vena cava are normal in size. Miscellaneous: No ventral hernias. PELVIS: Genitourinary: Bladder wall thickness is normal. Miscellaneous: No inguinal hernias or adenopathy. Right adnexal cyst measuring 3 cm. Probable supra cervical hysterectomy. Bones: No suspicious bony lesions. No vertebral body compression fractures. IMPRESSION: 1. Normal appendix. 2. 3 cm right adnexal cyst. 3. Mild diffuse hepatic steatosis. Reviewed by: Ish Roe MD on 06/01/2022 1:19 PM PST Approved by: Ish Roe MD on 06/01/2022 1:19 PM PST Station ID: [id number]
[2022-06-01 13:42] LABS: BILIRUBIN,URINE NEGATIVE (NEGATIVE); GLUCOSE, URINE (UA) 500 mg/dL (NEGATIVE); KETONES,URINE (UA) 15 mg/dL (NEGATIVE); LEUKOCYTE ESTERASE, URINE NEGATIVE (NEGATIVE); NITRITE,URINE NEGATIVE (NEGATIVE); OCCULT BLOOD,URINE NEGATIVE (NEGATIVE); PROTEIN,URINE TRACE mg/dL (NEGATIVE); UROBILINOGEN,URINE 0.2 (NORMAL) E.U./dL (NORMAL)
[2022-06-01 13:45] LABS: CLARITY,URINE CLEAR (CLEAR)
[2022-06-01] MEDS ORDERED: ACETAMINOPHEN 325 MG TABLET PO STA (13:55)
[2022-06-01 14:14] VITALS: BP 136/78
== END 2022-06-01 14:14 | disposition home or self-care (01) ==
LOC: ED 08:32
DX: A08.39 Other viral enteritis (principal); B97.19 Other enterovirus as the cause of diseases classified elsewhere; B97.89 Other viral agents as the cause of diseases classified elsewhere; E86.0 Dehydration; K76.0 Fatty (change of) liver, not elsewhere classified; N83.201 Unspecified ovarian cyst, right side; Z90.710 Acquired absence of both cervix and uterus; K21.9 Gastro-esophageal reflux disease without esophagitis; E11.9 Type 2 diabetes mellitus without complications; Z79.4 Long term (current) use of insulin; Z87.891 Personal history of nicotine dependence
CPT/HCPCS: 36415; 74177; 80053; 81003; 83690; 85025; 87633; 96361; 96374; 96376; 99284; A9270; 81001; 87086

== ENCOUNTER 2022-07-05 15:40 | Outpatient (CLI) | payer OTHER ==
[2022-07-06 10:37] LABS: CHOL/HDL RATIO 3.6 (<4.4); CHOLESTEROL 174 mg/dL; HDL CHOLESTEROL 49 mg/dL; LDL CHOLESTEROL,CALCULATED 108 mg/dL; LDL/HDL RATIO 2.2 (<4.4); TRIGLYCERIDES 87 mg/dL; VLDL CHOLESTEROL 17 mg/dL
[2022-07-06 10:44] LABS: CREATININE,URINE 182.5 mg/dL; MICROALBUM/CREATININE RATIO,UR 19.2 ug/mg (<30.0); MICROALBUMIN,URINE 3.5 mg/dL (0-300.0)
[2022-07-06 11:14] LABS: ESTIMATED AVERAGE GLUCOSE 212 mg/dL (70-100)
== END 2022-07-05 15:41 | disposition home or self-care (01) ==
LOC: LAB.N 15:40
PROVIDERS: ATTEND Nurse Practitioner Family
DX: E11.65 Type 2 diabetes mellitus with hyperglycemia (principal)
CPT/HCPCS: 36415; 80061; 82043; 82570; 83036; 83721

== ENCOUNTER 2022-07-25 23:17 | Emergency (ER) | payer OTHER ==
[2022-07-26] MEDS ORDERED: ALBUTEROL NEB 2.5 MG/3 ML INH STA (00:01)
[2022-07-26] MEDS ORDERED: DEXAMETHASONE 10 MG/ML VIAL PO STA (00:02)
[2022-07-26] MEDS ORDERED: CHERRY SYRUP 10 ML UDC PO ONE (00:02)
--- NOTE | 2022-07-26 00:05 | ED Physician Documentation ---
History of Present Illness - Stated complaint Stated Complaint: SOA - Chief complaint Chief Complaint: Resp - History obtained from History obtained from: Patient, Family (daughter) - Additonal information Additional information: 41-year-old woman with history of diabetes, high blood pressure, asthma, presents with intermittent chest tightness and shortness of breath over the past 4 days as well as nasal congestion and rhinorrhea. Patient has had cough productive of thick green sputum but denies fever or hemoptysis. 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, 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 - Present Medications Home Medications: Ambulatory Orders Medication Instructions Recorded Confirmed Acetaminophen [Tylenol Arthritis] 1,300 mg PO BID 06/12/21 09/20/21 Folic Acid 1 mg PO DAILY 06/12/21 09/20/21 Insulin 70/30 Human [Humulin 70-30 40 - 50 unit SQ BID 06/12/21 09/20/21 Vial] Meloxicam [Mobic] 1 tablet PO DAILY 06/12/21 09/20/21 Methotrexate Sodium/Pf 25 mg IJ OAW 06/12/21 09/20/21 [Methotrexate 25 mg/ml Vial] Montelukast [Singulair] 10 mg PO DAILY 06/12/21 09/20/21 Omeprazole 20 mg PO DAILY 06/12/21 09/20/21 Trazodone HCl 100 mg PO QPM 06/12/21 09/20/21 DULoxetine [Cymbalta] 30 mg PO DAILY 09/20/21 09/20/21 Losartan Potassium [Cozaar] 100 mg PO DAILY 09/20/21 09/20/21 Etanercept [Enbrel] 07/25/22 Semaglutide [Ozempic] 07/25/22 Albuterol 2.5 mg INH Q4H PRN #30 ml 07/26/22 predniSONE [Prednisone 21-TAB dose 60 mg PO QDAC 6 Days #21 tab 07/26/22 pack] - Allergies Allergies/Adverse Reactions: Allergies Allergy/AdvReac Type Severity Reaction Status Date / Time Latex, Natural Rubber AdvReac Intermediate Rash Verified 07/25/22 23:23 - Social History Does the pt smoke?: No Smoking Status: Never smoker Does the pt drink ETOH?: No Does the pt have substance abuse?: No - Immunizations Immunizations are current?: Yes - POLST Patient has POLST: No PD ED PE NORMAL - Vitals Vital signs reviewed: Yes - General General: Alert and oriented X 3, No acute distress, Well developed/nourished - HEENT HEENT: Atraumatic, PERRL, EOMI - Neck Neck: Supple, no meningeal sign - Cardiac Cardiac: RRR - Respiratory Respiratory: Other (BL expiratory wheezing) Results - Vitals Vitals: Vital Signs - 24 hr 07/25/22 07/25/22 07/26/22 23:26 23:31 00:05 Temperature 36.4 C L Heart Rate 74 72 65 Respiratory 16 25 H 18 Rate Blood Pressure 147/93 H 157/91 H O2 Saturation 98 100 Oxygen O2 Source Room air PD Medical Decision Making - ED course ED course: 41-year-old woman presents with acute asthma exacerbation. Nebulized albuterol provided in the emergency department with improvement in wheezing and subjective shortness of breath. CXR noncontributory. Symptomatic care discussed. Prescriptions for nebulizers and steroids sent to her pharmacy. Return precautions given. Plan to follow-up with primary care provider. Departure - Departure Disposition: 01 Home, Self Care Clinical Impression: Asthma Condition: Good Instructions: Asthma Dc Prescriptions: Albuterol 2.5 mg INH Q4H PRN #30 ml PRN Reason: Wheezing predniSONE [Prednisone 21-TAB dose pack] 60 mg PO QDAC 6 Days #21 tab Comments: You are seen in the emergency department for asthma exacerbation. Please follow-up with your primary care provider. Electronic prescriptions for nebulizers and steroids were sent to [facility] in [place]. Please return to the emergency department if you have any new or worsening symptoms or other concerns
--- NOTE | 2022-07-26 01:04 | XRAY Report ---
PROCEDURE: Chest 2 View X-Ray INDICATIONS: soa, cough TECHNIQUE: 2 views of the chest were acquired. COMPARISON: Chest x-ray 01/17/2016. FINDINGS: Surgical changes and devices: None. Lungs and pleura: No pleural effusions or pneumothorax. Lungs are clear. Mediastinum: Mediastinal contours are normal. Heart size is normal. Bones and chest wall: No suspicious bony abnormalities. Soft tissues appear unremarkable. IMPRESSION: 1. No acute cardiopulmonary disease. Reviewed by: Dorian Vale MD on 07/26/2022 1:13 AM PST Approved by: Dorian Vale MD on 07/26/2022 1:13 AM [facility] Station ID: [id number]
[2022-07-26 01:06] VITALS: BP 100/86
== END 2022-07-26 01:06 | disposition home or self-care (01) ==
LOC: ED 23:17
DX: J45.901 Unspecified asthma with (acute) exacerbation (principal)
CPT/HCPCS: 36415; 71046; 94640; 99283; 99284; A9270

== ENCOUNTER 2022-12-14 10:15 | Outpatient (CLI) | payer OTHER ==
--- NOTE | 2022-12-14 15:56 | XRAY Report ---
PROCEDURE: Elbow 2 View RT INDICATIONS: ELBOW PAIN RIGHT TECHNIQUE: 2 views of the elbow were acquired. COMPARISON: None. FINDINGS: Bones: No fractures or dislocations. No suspicious bony lesions. Soft tissues: No effusion. No suspicious soft tissue calcifications or masses. IMPRESSION: No acute elbow fracture or dislocation. No joint effusion. Reviewed by: Nikhil Barney MD on 12/14/2022 3:55 PM PDT Approved by: Nikhil Barney MD on 12/14/2022 3:55 PM PDT Station ID: [id number]
== END 2022-12-14 10:30 | disposition home or self-care (01) ==
LOC: DI.N 10:15
PROVIDERS: ATTEND Physician Assistant
DX: M25.521 Pain in right elbow (principal)

== ENCOUNTER 2023-02-25 10:22 | Outpatient (CLI) | payer OTHER | END 2023-02-25 23:59 | disposition other institution (70) | LOC: EMS 10:22 | DX: T63.441A Toxic effect of venom of bees, accidental (unintentional), initial encounter (principal) ==

== ENCOUNTER 2023-02-25 11:10 | Emergency (ER) | payer OTHER ==
[2023-02-25] MEDS ORDERED: methylPREDNISolone SUCCINATE 125 MG/2 ML VIAL IVP STA (11:26)
--- NOTE | 2023-02-25 11:27 | ED Physician Documentation ---
History of Present Illness - Stated complaint Stated Complaint: BEESTING - Chief complaint Chief Complaint: Allergic Rx - History obtained from History obtained from: Patient - Additonal information Additional information: 42-year-old woman with autoimmune disease related to psoriatic arthritis, hypertension, type 2 diabetes, and history of anaphylaxis to bee stings. At 10:19 AM she was stung on the right hand by a bee and immediately developed throat scratchiness and mild shortness of breath without overt wheezing or feeling like her throat was swelling. She took he EpiPen within minutes and symptoms have improved but not resolved. She also took 50 mg of Benadryl prior to arrival. 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 - Present Medications Home Medications: Ambulatory Orders Medication Instructions Recorded Confirmed Acetaminophen [Tylenol Arthritis] 1,300 mg PO BID 06/12/21 09/20/21 Folic Acid 1 mg PO DAILY 06/12/21 09/20/21 Insulin 70/30 Human [Humulin 70-30 40 - 50 unit SQ BID 06/12/21 09/20/21 Vial] Meloxicam [Mobic] 1 tablet PO DAILY 06/12/21 09/20/21 Methotrexate Sodium/Pf 25 mg IJ OAW 06/12/21 09/20/21 [Methotrexate 25 mg/ml Vial] Montelukast [Singulair] 10 mg PO DAILY 06/12/21 09/20/21 Omeprazole 20 mg PO DAILY 06/12/21 09/20/21 Trazodone HCl 100 mg PO QPM 06/12/21 09/20/21 DULoxetine [Cymbalta] 30 mg PO DAILY 09/20/21 09/20/21 Losartan Potassium [Cozaar] 100 mg PO DAILY 09/20/21 09/20/21 Etanercept [Enbrel] 07/25/22 Semaglutide [Ozempic] 07/25/22 Albuterol 2.5 mg INH Q4H PRN #30 ml 07/26/22 predniSONE [Prednisone 21-TAB dose 60 mg PO QDAC 6 Days #21 tab 07/26/22 pack] EPINEPHrine [Epinephrine] 0.3 mg IJ ONCE PRN #2 each 02/25/23 - Allergies Allergies/Adverse Reactions: Allergies Allergy/AdvReac Type Severity Reaction Status Date / Time bee pollen Allergy Anaphylaxis Verified 02/25/23 11:19 Latex, Natural Rubber AdvReac Intermediate Rash Verified 07/25/22 23:23 - Social History Does the pt smoke?: No Smoking Status: Never smoker Does the pt drink ETOH?: No Does the pt have substance abuse?: No - Immunizations Immunizations are current?: Yes - POLST Patient has POLST: No PD ED PE NORMAL - Vitals Vital signs reviewed: Yes - General General: Alert and oriented X 3, No acute distress - HEENT HEENT: Pharynx benign (Visualized oropharynx and phonation are normal.) - Respiratory Respiratory: No respiratory distress, Clear bilaterally - Abdomen Abdomen: Non tender - Derm Derm: Other (Mild diffuse erythroderma) - Neuro Neuro: Alert and oriented X 3 Results - Vitals Vitals: Vital Signs - 24 hr 02/25/23 02/25/23 02/25/23 11:13 11:57 13:18 Temperature 36.4 C L Heart Rate 78 68 76 Respiratory 20 28 H 20 Rate Blood Pressure 129/72 122/79 136/70 H O2 Saturation 97 99 96 Oxygen O2 Source Room air PD Medical Decision Making - ED course ED course: 42-year-old woman presents with anaphylaxis to bee sting. Had home EpiPen prior to arrival and was improving but shortly after my initial evaluation developed more bronchospastic coughing and another dose of epinephrine, 0.5 mg IM was ordered and administered after which she was feeling better. She also received 125 mg of Solu-Medrol. She was observed for several hours with complete resolution of her symptoms and requested discharge. Departure - Departure Disposition: 01 Home, Self Care Clinical Impression: Anaphylaxis Qualifiers: Encounter type: initial encounter Qualified Code(s): T78.2XXA - Anaphylactic shock, unspecified, initial encounter Condition: Good Record reviewed to determine appropriate education?: Yes Instructions: ED Bite Sting Insect Gen Allergic React Prescriptions: EPINEPHrine [Epinephrine] 0.3 mg IJ ONCE PRN #2 each PRN Reason: Allergy Symptoms Forms: PCP List, Activity restrictions Discharge Date/Time: 02/25/23 14:13
[2023-02-25] MEDS ORDERED: EPINEPHrine 1 MG/ML AMP IM STA (11:39)
[2023-02-25] MEDS ORDERED: EPINEPHrine 1 MG/ML AMP ONE (11:47)
[2023-02-25 13:26] VITALS: BP 136/70; O2SAT 96
== END 2023-02-25 14:13 | disposition home or self-care (01) ==
LOC: EDUNIT# → ED 11:10
DX: T78.2XXA Anaphylactic shock, unspecified, initial encounter (principal); W57.XXXA Bitten or stung by nonvenomous insect and other nonvenomous arthropods, initial encounter
CPT/HCPCS: 96374; 99283

== ENCOUNTER 2023-04-29 08:13 | Outpatient (CLI) | payer OTHER ==
[2023-04-29 12:57] LABS: ESTIMATED AVERAGE GLUCOSE 209 mg/dL (70-100); HEMOGLOBIN A1c% 8.9 % (4.27-6.07)
[2023-04-29 13:05] LABS: ALBUMIN/GLOBULIN RATIO 1.2 (1.0-2.2); ALKALINE PHOSPHATASE 85 IU/L (42-121); ALT ALANINE AMINOTRANSFERASE 21 IU/L (10-60); AST ASPARTATE AMINOTRANSFERASE 17 IU/L (10-42); BILIRUBIN,TOTAL 0.5 mg/dL (0.2-1.0); BUN - BLOOD UREA NITROGEN 13 mg/dL (6-20); CALCIUM 9.5 mg/dL (8.5-10.3); CARBON DIOXIDE - CO2 33 mmol/L (21-32); CHLORIDE 97 mmol/L (101-111); CHOL/HDL RATIO 3.8 (<4.4); CHOLESTEROL 169 mg/dL; CREATININE 0.8 mg/dL (0.6-1.3); GFR - MDRD 79 (>89); GLUCOSE 208 mg/dL (74-104); HDL CHOLESTEROL 44 mg/dL; LDL CHOLESTEROL,CALCULATED 91 mg/dL; LDL/HDL RATIO 2.1 (<4.4); POTASSIUM 3.9 mmol/L (3.5-4.5); SODIUM 137 mmol/L (135-145); TOTAL PROTEIN 7.3 g/dL (6.4-8.9); TRIGLYCERIDES 168 mg/dL (48-352); VLDL CHOLESTEROL 34 mg/dL
== END 2023-04-29 08:14 | disposition home or self-care (01) ==
LOC: LAB.N 08:13
PROVIDERS: ATTEND Nurse Practitioner Family
DX: E11.8 Type 2 diabetes mellitus with unspecified complications (principal)
CPT/HCPCS: 36415; 80053; 80061; 83036; 83721

== ENCOUNTER 2023-07-31 08:00 | Outpatient (CLI) | payer OTHER ==
[2023-07-31 12:53] LABS: BILIRUBIN,URINE NEGATIVE (NEGATIVE); GLUCOSE, URINE (UA) NEGATIVE (NEGATIVE); KETONES,URINE (UA) NEGATIVE (NEGATIVE); LEUKOCYTE ESTERASE, URINE TRACE (NEGATIVE); NITRITE,URINE NEGATIVE (NEGATIVE); OCCULT BLOOD,URINE NEGATIVE (NEGATIVE); PROTEIN,URINE TRACE mg/dL (NEGATIVE); UROBILINOGEN,URINE 0.2 (NORMAL) E.U./dL (NORMAL)
[2023-07-31 13:56] LABS: CLARITY,URINE HAZY (CLEAR); RBC,URINE 0-5 /HPF (0-5); SQUAMOUS EPITHELIAL CELL,UR FEW Squamous (<= Few); WBC,URINE >25 /HPF (0-5)
[2023-07-31 13:57] LABS: BACTERIA,URINE Moderate /HPF (None Seen)
== END 2023-07-31 23:59 | disposition home or self-care (01) ==
LOC: LAB.WCP 08:00
PROVIDERS: ATTEND Nurse Practitioner Family
DX: R30.0 Dysuria (principal)
CPT/HCPCS: 81001; 87086; 87181

== ENCOUNTER 2023-08-09 10:32 | Emergency (ER) | payer OTHER ==
[2023-08-09 11:04] LABS: BILIRUBIN,URINE NEGATIVE (NEGATIVE); GLUCOSE, URINE (UA) NEGATIVE (NEGATIVE); KETONES,URINE (UA) NEGATIVE (NEGATIVE); LEUKOCYTE ESTERASE, URINE NEGATIVE (NEGATIVE); NITRITE,URINE NEGATIVE (NEGATIVE); OCCULT BLOOD,URINE NEGATIVE (NEGATIVE); PH,URINE 6.5 PH (5.0-7.5); PROTEIN,URINE NEGATIVE (NEGATIVE); UROBILINOGEN,URINE 0.2 (NORMAL) E.U./dL (NORMAL)
[2023-08-09 11:06] LABS: CLARITY,URINE CLEAR (CLEAR)
[2023-08-09 11:12] LABS: BASOPHILS # (AUTO) 0.1 10^3/uL (0.0-0.1); BASOPHILS % (AUTO) 0.5 %; EOSINOPHILS # (AUTO) 0.3 10^3/uL (0.0-0.7); EOSINOPHILS % (AUTO) 2.5 %; HCT - HEMATOCRIT 43.3 % (37.0-47.0); HGB - HEMOGLOBIN 13.9 g/dL (12.0-16.0); LYMPHOCYTES % (AUTO) 35.5 %; MEAN CORPUSCULAR HEMOGLOBIN 29.7 pg (27.0-31.0); MEAN CORPUSCULAR HGB CONC 32.1 g/dL (32.0-36.0); MEAN CORPUSCULAR VOLUME 92.5 fL (81.0-99.0); MEAN PLATELET VOLUME 10.2 fL (7.9-10.8); MONOCYTES # (AUTO) 0.7 10^3/uL (0.0-1.0); MONOCYTES % (AUTO) 6.2 %; NEUTROPHILS # (AUTO) 6.2 10^3/uL (1.5-6.6); PLT - PLATELET COUNT 252 10^3/uL (130-450); RED BLOOD COUNT 4.68 10^6/uL (4.20-5.40); RED CELL DISTRIBUTION WIDTH 12.2 % (12.0-15.0); WHITE BLOOD COUNT 11.3 x10^3/uL (4.8-10.8)
[2023-08-09 11:31] LABS: ALBUMIN 3.7 g/dL (3.2-5.5); ALBUMIN/GLOBULIN RATIO 1.1 (1.0-2.2); BILIRUBIN,TOTAL 0.4 mg/dL (0.2-1.0); CALCIUM 9.5 mg/dL (8.5-10.3); CREATININE 0.7 mg/dL (0.6-1.3); POTASSIUM 4.1 mmol/L (3.5-4.5)
--- NOTE | 2023-08-09 11:48 | ED Physician Documentation ---
PD HPI ABD PAIN - Stated complaint Stated Complaint: N/D/ABD PX - Chief complaint Chief Complaint: Abd Pain - Additional information Additional information: 43-year-old female with history of hypertension, arrhythmia, type 2 diabetes, fibromyalgia, Autoimmune disease related to psoriatic arthritis on suppression medication, methotrexate an Enbrel presents emergency department today for severe persistent nausea vomiting diarrhea.Patient reports she is struggled with chronic diarrhea for some time now but this feels very different. She said that she has had persistent diarrhea until she was diagnosed with her autoimmune arthritis disease and was started on methotrexate and Enbrel her diarrhea has completely resolved. Patient was treated with Macrobid last week for UTI symptoms for the most part fully resolved aside from mild diarrhea that she attributed to her chronic diarrhea. Over the last 3 to 4 days her diarrhea has significantly increased. Patient says that she is having about 3-4 explosive diarrhea episodes an hour an d is starting to have abdominal pain. She describes the pain as generalized discomfort throughout her entire abdomen. She has been having nausea with vomiting. She denies any melena, hematemesis. Denies any fevers or chills. 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 - Present Medications Home Medications: Ambulatory Orders Medication Instructions Recorded Confirmed Acetaminophen [Tylenol Arthritis] 1,300 mg PO BID 06/12/21 09/20/21 Folic Acid 1 mg PO DAILY 06/12/21 09/20/21 Insulin 70/30 Human [Humulin 70-30 40 - 50 unit SQ BID 06/12/21 09/20/21 Vial] Meloxicam [Mobic] 1 tablet PO DAILY 06/12/21 09/20/21 Methotrexate Sodium/Pf 25 mg IJ OAW 06/12/21 09/20/21 [Methotrexate 25 mg/ml Vial] Montelukast [Singulair] 10 mg PO DAILY 06/12/21 09/20/21 Omeprazole 20 mg PO DAILY 06/12/21 09/20/21 Trazodone HCl 100 mg PO QPM 06/12/21 09/20/21 DULoxetine [Cymbalta] 30 mg PO DAILY 09/20/21 09/20/21 Losartan Potassium [Cozaar] 100 mg PO DAILY 09/20/21 09/20/21 Etanercept [Enbrel] 07/25/22 Semaglutide [Ozempic] 07/25/22 Albuterol 2.5 mg INH Q4H PRN #30 ml 07/26/22 predniSONE [Prednisone 21-TAB dose 60 mg PO QDAC 6 Days #21 tab 07/26/22 pack] EPINEPHrine [Epinephrine] 0.3 mg IJ ONCE PRN #2 each 02/25/23 ONDANSETRON ODT Prepack 2 [ZOFRAN 4 mg TL Q6H PRN #15 tablet 08/09/23 ODT Prepack 2] - Allergies Allergies/Adverse Reactions: Allergies Allergy/AdvReac Type Severity Reaction Status Date / Time bee pollen Allergy Anaphylaxis Verified 08/09/23 10:43 Latex, Natural Rubber AdvReac Intermediate Rash Verified 08/09/23 10:43 - Social History Does the pt smoke?: No Smoking Status: Never smoker Does the pt drink ETOH?: No Does the pt have substance abuse?: No - Immunizations Immunizations are current?: Yes - POLST Patient has POLST: No PD ED PE NORMAL - Vitals Vital signs reviewed: Yes - General General: Alert and oriented X 3, Well developed/nourished - Neck Neck: No JVD - Cardiac Cardiac: RRR, No murmur - Respiratory Respiratory: No respiratory distress, Clear bilaterally - Abdomen Abdomen: Soft, Non distended (Hyperactive bowel tones, generalized pain throughout abdomen pain most severe in her pelvic region) - Derm Derm: Normal color, Warm and dry, No rash - Extremities Extremities: No edema Results - Vitals Vitals: Vital Signs - 24 hr 08/09/23 08/09/23 08/09/23 10:37 13:55 15:26 Temperature 36.3 C L 36.0 C L 36.2 C L Heart Rate 67 60 70 Respiratory 16 18 18 Rate Blood Pressure 134/76 H 142/67 H 129/67 O2 Saturation 98 99 99 Oxygen O2 Source Room air - Labs Labs: Laboratory Tests 08/09/23 08/09/23 08/09/23 10:54 11:08 11:08 WBC 11.3 H RBC 4.68 Hgb 13.9 Hct 43.3 MCV 92.5 MCH 29.7 MCHC 32.1 RDW 12.2 Plt Count 252 MPV 10.2 Neut # (Auto) 6.2 Lymph # (Auto) 4.0 H Bath # (Auto) 0.7 Eos # (Auto) 0.3 Baso # (Auto) 0.1 Absolute Nucleated RBC 0.00 Nucleated RBC % 0.0 Sodium 139 Potassium 4.1 Chloride 105 Carbon Dioxide 28 Anion Gap 6.0 BUN 17 Creatinine 0.7 Estimated GFR (MDRD) 91 Glucose 92 Calcium 9.5 Total Bilirubin 0.4 AST 15 ALT 18 Alkaline Phosphatase 66 Total Protein 7.0 Albumin 3.7 Globulin 3.3 Albumin/Globulin Ratio 1.1 Lipase 18 Urine Color YELLOW Urine Clarity CLEAR Urine pH 6.5 Ur Specific [place] 1.020 Urine Protein NEGATIVE Urine Glucose (UA) NEGATIVE Urine Ketones NEGATIVE Urine Occult Blood NEGATIVE Urine Nitrite NEGATIVE Urine Bilirubin NEGATIVE Urine Urobilinogen 0.2 (NORMAL) Ur Leukocyte Esterase NEGATIVE Ur Microscopic Review NOT INDICATED Urine Culture Comments NOT INDICATED Nasal Adenovirus (PCR) Nasal B. parapertussis DNA (PCR) Nasal Coronavir 229E PCR Nasal Coronavir HKU1 PCR Nasal Coronavir NL63 PCR Nasal Coronavir OC43 PCR Nasal Enterovir/Rhinovir PCR Nasal Influenza B PCR Nasal Influenza A PCR Nasal Parainfluen 1 PCR Nasal Parainfluen 2 PCR Nasal Parainfluen 3 PCR Nasal Parainfluen 4 PCR Nasal RSV (PCR) Nasal B.pertussis DNA PCR Nasal C.pneumoniae (PCR) Oniel Human Metapneumo PCR Nasal M.pneumoniae (PCR) Nasal SARS-CoV-2 (PCR) 08/09/23 12:06 WBC RBC Hgb Hct MCV MCH MCHC RDW Plt Count MPV Neut # (Auto) Lymph # (Auto) Bath # (Auto) Eos # (Auto) Baso # (Auto) Absolute Nucleated RBC Nucleated RBC % Sodium Potassium Chloride Carbon Dioxide Anion Gap BUN Creatinine Estimated GFR (MDRD) Glucose Calcium Total Bilirubin AST ALT Alkaline Phosphatase Total Protein Albumin Globulin Albumin/Globulin Ratio Lipase Urine Color Urine Clarity Urine pH Ur Specific [place] Urine Protein Urine Glucose (UA) Urine Ketones Urine Occult Blood Urine Nitrite Urine Bilirubin Urine Urobilinogen Ur Leukocyte Esterase Ur Microscopic Review Urine Culture Comments Nasal Adenovirus (PCR) NOT DETECTED Nasal B. parapertussis DNA (PCR) NOT DETECTED Nasal Coronavir 229E PCR NOT DETECTED Nasal Coronavir HKU1 PCR NOT DETECTED Nasal Coronavir NL63 PCR NOT DETECTED Nasal Coronavir OC43 PCR NOT DETECTED Nasal Enterovir/Rhinovir PCR NOT DETECTED Nasal Influenza B PCR NOT DETECTED Nasal Influenza A PCR NOT DETECTED Nasal Parainfluen 1 PCR NOT DETECTED Nasal Parainfluen 2 PCR NOT DETECTED Nasal Parainfluen 3 PCR NOT DETECTED Nasal Parainfluen 4 PCR NOT DETECTED Nasal RSV (PCR) NOT DETECTED Nasal B.pertussis DNA PCR NOT DETECTED Nasal C.pneumoniae (PCR) NOT DETECTED Oniel Human Metapneumo PCR NOT DETECTED Nasal M.pneumoniae (PCR) NOT DETECTED Nasal SARS-CoV-2 (PCR) NOT DETECTED - Rads (name of study) ct abd/pelvis w Relevant Findings:: Final report received, EMP independent interpretation of test (Abdomen pelvis CT reveals mild to moderate inflammatory changes of cecum, ascending colon, possible terminal ileum.) PD Medical Decision Making - ED course ED course: This patient presents with nausea, vomiting & diarrhea. Differential diagnosis includes possible acute gastroenteritis. Abdominal exam without peritoneal signs. Currently euvolemic she does appear to be slightly dehydrate. I also strongly considered C diff as she was recently on abx for UTI. Throughout ER visit she was unable to have any diarrhea or loose bowel movements I was unable to collect a stool sample for further evaluation of possible bacterial cause of gastroenteritis. Her white count is not elevated,she is hemodynamically stable and afebrile throughout entire visit. She has had no recent travel. Diarrhea is non bloody so less likely inflammatory bowel disease. No evidence of surgical abdomen or other acute medical emergency including bowel obstruction, viscus perforation, atypical appendicitis, acute cholecystitis, or diverticulitis at this time. I decided to go ahead and do a CT abdomen pelvis without con for further evaluation which revealed inflammation to the cecum, Ascending colon, possible terminal ileum. CBC shows slight leukocytosis, WC 11.3 patient reports that she is chronically elevated. Lymphocytes also slightly elevated at 4.0. CMP does not show any electrolyte abnormalities, kidney function normal, lipase within normal limits. Urinalysis also found to be unremarkable, no leukocytes no nitrates no WBCs. Patient improved significantly after receiving 1 L IV fluids as well as IV Zofran she is able to tolerate p.o.'s She says that she has close contact with her primary care provider and she is able to follow-up with a stool sample outpatient as needed. A prescription of Zofran was sent to her preferred pharmacy so that she is able to tolerate fluids and food going home. She is told to also consider following up with her GI provider who did her endoscopy colonoscopy couple years ago for further evaluation. She was given strict return precautions all questions answered safe for discharge. Departure - Departure Disposition: 01 Home, Self Care Clinical Impression: Gastroenteritis Condition: Good Instructions: ED Gastroenteritis Viral Prescriptions: ONDANSETRON ODT Prepack 2 [ZOFRAN ODT Prepack 2] 4 mg TL Q6H PRN #15 tablet PRN Reason: Nausea / Vomiting Comments: Thank you for trusting us with your care. We have completed labs as well as a CT scan and urinalysis I am not seeing anything super glaring at this time that could be causing your gastroenteritis. You are able to keep fluids and crackers down which is very reassuring so I am sending a prescription of Zofran to [facility] in [place] you can take 4 to 8 mg every 8 hours as needed for nausea and vomiting. Please follow-up with your primary care provider soon as possible to let them know about this ER visit and to have a stool sample complete since we are unable to do so here in the emergency department. Your CT scan did some inflammation of your GI tract below is the radiology read again this is just something I want you to discuss with your primary care provider about for further evaluation and follow-up in a possible visit with your GI provider who did your colonoscopy previously. Focal mild to moderate inflammatory change can be seen involving the cecum, ascending colon, and potentially the terminal ileum. Please correlate with potential infectious and inflammatory causes of colitis. Forms: PCP List Discharge Date/Time: 08/09/23 15:26
[2023-08-09] MEDS ORDERED: SODIUM CHLORIDE 0.9% 1,000 ML IV ONE (11:51)
[2023-08-09] MEDS ORDERED: iohexoL-300 100 ML VIAL ONE (12:24)
--- NOTE | 2023-08-09 12:52 | CT Report ---
PROCEDURE: Abdomen/Pelvis W INDICATIONS: generalized abdominal pain CONTRAST: 100ml omni 300 TECHNIQUE: After the administration of intravenous contrast, a CT scan of the abdomen and pelvis was performed. Images were recorded and evaluated at appropriate window settings. Reformats: coronal and sagittal. F or radiation dose reduction, the following was used: automated exposure control, adjustment of mA and /or kV according to patient size. COMPARISON: 06/01/2022 FINDINGS: Image quality: Diagnostic. Lower chest: Unremarkable. Liver: No solid mass. Diffuse fatty liver infiltration can be seen. Gallbladder and biliary tree: Within normal limits. Spleen: No splenomegaly. Pancreas: No pancreatic ductal dilation. Adrenals: No adrenal nodule. Kidneys and ureters: No hydronephrosis. No renal cystic lesion which requires follow up. No solid mas s. Stomach, bowel and peritoneum: Focal mild to moderate wall thickening can be seen involving the ascen ding colon and the cecum. The more distal colon is within normal limits. There is likely mild wall th ickening seen involving the terminal ileum. The small bowel is otherwise unremarkable. The stomach is relatively decompressed at the time of this study, limiting its evaluation. A normal appendix is partially seen. Lymph nodes: No central or retroperitoneal adenopathy. Vessels: No infrarenal aortic aneurysm. PELVIS Reproductive organs: Apparent prior supracervical hysterectomy. No adnexal masses are seen on either side. Bladder: No abnormal wall thickening, accounting for underdistention. Pelvic lymph nodes: No pelvic adenopathy by size criteria. Bones: No aggressive osseous abnormality. Other: No significant ventral or inguinal hernia. IMPRESSION: Focal mild to moderate inflammatory change can be seen involving the cecum, ascending colon, and pote ntially the terminal ileum. Please correlate with potential infectious and inflammatory causes of col itis. No findings of perforation or abscess can be seen. A normal appendix is partially seen. Additional findings: Fatty liver infiltration Apparent prior supracervical hysterectomy Reviewed by: Brendon Jama MD on 08/09/2023 11:51 AM [facility] Approved by: Brendon Jama MD on 08/09/2023 11:51 AM [facility] Station ID: [id number]
[2023-08-09 13:35] LABS: B. PARAPERTUSSIS- RESP PCR PAN NOT DETECTED; B. PERTUSSIS- RESP PCR PANEL NOT DETECTED; C. PNEUMONIAE- RESP PCR PANEL NOT DETECTED; CORONAVIRUS 229E-RESP PCR NOT DETECTED; CORONAVIRUS HKU1-RESP PCR NOT DETECTED; CORONAVIRUS NL63-RESP PCR NOT DETECTED; CORONAVIRUS OC43-RESP PCR NOT DETECTED; HUMAN METAPNEUMOVIRUS NOT DETECTED; INFLUENZA A- RESP PCR PANEL NOT DETECTED; INFLUENZA B - RESP PCR PANEL NOT DETECTED; M. PNEUMONIAE- RESP PCR PANEL NOT DETECTED; PARAINFLUENZA VIRUS 1 NOT DETECTED; PARAINFLUENZA VIRUS 2 NOT DETECTED; PARAINFLUENZA VIRUS 3 NOT DETECTED; PARAINFLUENZA VIRUS 4 NOT DETECTED; RHINOVIRUS/ENTEROVIRUS NOT DETECTED; RSV- RESP PCR PANEL NOT DETECTED; SARS-CoV-2 -RESP PCR PANEL NOT DETECTED
[2023-08-09 14:03] VITALS: O2SAT 99
[2023-08-09] MEDS ORDERED: ONDANSETRON 4 MG/2 ML VIAL IVP STA (14:12)
[2023-08-09 15:33] VITALS: BP 129/67
[2023-08-09] MEDS ORDERED: iohexoL-300 100 ML VIAL IVP ONE (17:07)
== END 2023-08-09 15:26 | disposition home or self-care (01) ==
LOC: ED 10:32
DX: K52.9 Noninfective gastroenteritis and colitis, unspecified (principal); M79.7 Fibromyalgia; I10 Essential (primary) hypertension; E11.9 Type 2 diabetes mellitus without complications; Z79.4 Long term (current) use of insulin
CPT/HCPCS: 36415; 74177; 80053; 81003; 83690; 85025; 87633; 96374; 99284; Q9967; 81001; 87086; 87507

== ENCOUNTER 2023-11-19 00:01 | Emergency (ER) | payer OTHER ==
--- NOTE | 2023-11-19 00:42 | ED Physician Documentation ---
History of Present Illness - Stated complaint Stated Complaint: SOA - Chief complaint Chief Complaint: Resp - History obtained from History obtained from: Patient - Additonal information Additional information: The patient comes to the emergency department chief complaint of shortness of breath and chest congestion over the last approximately week and a half. She has a history of asthma and states that she felt as though she either had a URI or some sinus allergies that seem to be kicking off her asthma. The patient states that she was given a steroid inhaler from the walk-in clinic but no oral steroids. She ran out of her albuterol nebules and has not been able to use her nebulizer machine at home. She states that she just feels as though her chest is more congested and that she is short of breath when she tries to ambulate and is concerned about this. The patient states she is otherwise fairly healthy. She is feeling a little better right now because she took her budesonide inhaler not too long ago. No fevers or chills. No sputum production. No other complaints at this time. 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 - Present Medications Home Medications: Ambulatory Orders Medication Instructions Recorded Confirmed Acetaminophen [Tylenol Arthritis] 1,300 mg PO BID 06/12/21 09/20/21 Folic Acid 1 mg PO DAILY 06/12/21 09/20/21 Insulin 70/30 Human [Humulin 70-30 40 - 50 unit SQ BID 06/12/21 09/20/21 Vial] Meloxicam [Mobic] 1 tablet PO DAILY 06/12/21 09/20/21 Methotrexate Sodium/Pf 25 mg IJ OAW 06/12/21 09/20/21 [Methotrexate 25 mg/ml Vial] Montelukast [Singulair] 10 mg PO DAILY 06/12/21 09/20/21 Omeprazole 20 mg PO DAILY 06/12/21 09/20/21 Trazodone HCl 100 mg PO QPM 06/12/21 09/20/21 DULoxetine [Cymbalta] 30 mg PO DAILY 09/20/21 09/20/21 Losartan Potassium [Cozaar] 100 mg PO DAILY 09/20/21 09/20/21 Etanercept [Enbrel] 07/25/22 Semaglutide [Ozempic] 07/25/22 Albuterol 2.5 mg INH Q4H PRN #30 ml 07/26/22 predniSONE [Prednisone 21-TAB dose 60 mg PO QDAC 6 Days #21 tab 07/26/22 pack] EPINEPHrine [Epinephrine] 0.3 mg IJ ONCE PRN #2 each 02/25/23 ONDANSETRON ODT Prepack 2 [ZOFRAN 4 mg TL Q6H PRN #15 tablet 08/09/23 ODT Prepack 2] Albuterol Sulfate 1.25 mg IH Q4H PRN #25 each 11/19/23 predniSONE [Deltasone] 60 mg PO DAILY 5 Days #15 tablet 11/19/23 - Allergies Allergies/Adverse Reactions: Allergies Allergy/AdvReac Type Severity Reaction Status Date / Time bee pollen Allergy Anaphylaxis Verified 11/19/23 00:05 Latex, Natural Rubber AdvReac Intermediate Rash Verified 11/19/23 00:05 - Social History Does the pt smoke?: No Smoking Status: Never smoker Does the pt drink ETOH?: No Does the pt have substance abuse?: No - Immunizations Immunizations are current?: Yes - POLST Patient has POLST: No PD ED PE NORMAL - Vitals Vital signs reviewed: Yes - General General: Alert and oriented X 3, No acute distress, Well developed/nourished - HEENT HEENT: Atraumatic, EOMI, Moist mucous membranes - Neck Neck: Supple, no meningeal sign - Cardiac Cardiac: RRR, No murmur - Respiratory Respiratory: No respiratory distress, Other (Mild wheezing right lung, clear left lung.) - Derm Derm: Normal color, Warm and dry, No rash - Extremities Extremities: No deformity - Neuro Neuro: Alert and oriented X 3 - Psych Psych: Normal mood, Normal affect Results - Vitals Vitals: Oxygen O2 Source Room air PD Medical Decision Making - ED course Complexity details: reviewed results, re-evaluated patient, considered differential, d/w patient ED course: The patient was treated in the emergency department with a DuoNeb and Decadron, and worked up with a chest x-ray. She declined respiratory PCR panel. Patient was feeling much better after treatment. Her x-ray was negative. I have prescribed a steroid taper for her. We discussed the usual indications for return and follow-up. Departure - Departure Disposition: 01 Home, Self Care Clinical Impression: Asthma Qualifiers: Asthma severity: mild Asthma persistence: intermittent Asthma complication type: with acute exacerbation Qualified Code(s): J45.21 - Mild intermittent asthma with (acute) exacerbation Upper respiratory tract infection Qualifiers: URI type: unspecified viral URI Qualified Code(s): J06.9 - Acute upper respiratory infection, unspecified Condition: Stable Instructions: Asthma Dc Prescriptions: Albuterol Sulfate 1.25 mg IH Q4H PRN #25 each PRN Reason: Wheezing predniSONE [Deltasone] 60 mg PO DAILY 5 Days #15 tablet Comments: Your x-ray looks good tonight. Your lungs showed very very mild wheezing on the right but clear on the left. You were treated with a nebulizer treatment and a shot of steroids. A prescription for your nebules and the short course of steroids has been electronically transmitted to the [facility] pharmacy in [place]. Forms: PCP List Discharge Date/Time: 11/19/23 01:16
[2023-11-19] MEDS: DEXAMETHASONE 10 MG/ML VIAL IM STA (00:44)
[2023-11-19] MEDS: IPRATROPIUM/ALBUTEROL 3 ML NEB INH STA (00:45)
--- NOTE | 2023-11-19 01:10 | XRAY Report ---
PROCEDURE: Chest 1V INDICATIONS: cough/congestion TECHNIQUE: One view of the chest was acquired. COMPARISON: Lung bases on CT abdomen pelvis 08/09/2023. CXR 07/26/2022. FINDINGS: Surgical changes and devices: None. Lungs and pleura: No pleural effusions or pneumothorax. Lungs are clear. Mediastinum: Mediastinal contours appear normal. Heart size is normal. Bones and chest wall: No suspicious bony lesions. Overlying soft tissues appear unremarkable. IMPRESSION: No acute cardiopulmonary process. Reviewed by: Scot Yeung MD on 11/19/2023 1:09 AM PDT Approved by: Scot Yeung MD on 11/19/2023 1:09 AM PDT Station ID: [id number]
[2023-11-19 01:22] VITALS: BP 145/88; O2SAT 98
== END 2023-11-19 01:16 | disposition home or self-care (01) ==
LOC: ED 00:01
DX: J45.21 Mild intermittent asthma with (acute) exacerbation (principal); J06.9 Acute upper respiratory infection, unspecified; I10 Essential (primary) hypertension; E11.9 Type 2 diabetes mellitus without complications; Z79.899 Other long term (current) drug therapy; Z79.4 Long term (current) use of insulin; Z91.040 Latex allergy status
CPT/HCPCS: 94640; 96374; 99283

== ENCOUNTER 2023-12-25 11:07 | Outpatient (CLI) | payer OTHER ==
[2023-12-25 17:55] LABS: BILIRUBIN,URINE NEGATIVE (NEGATIVE); GLUCOSE, URINE (UA) 100 mg/dL (NEGATIVE); KETONES,URINE (UA) NEGATIVE (NEGATIVE); LEUKOCYTE ESTERASE, URINE NEGATIVE (NEGATIVE); NITRITE,URINE NEGATIVE (NEGATIVE); OCCULT BLOOD,URINE NEGATIVE (NEGATIVE); PROTEIN,URINE NEGATIVE (NEGATIVE); UROBILINOGEN,URINE 0.2 (NORMAL) E.U./dL (NORMAL)
[2023-12-25 18:11] LABS: CLARITY,URINE CLEAR (CLEAR); WBC,URINE 0-3 /HPF (0-5)
[2023-12-25 18:12] LABS: BACTERIA,URINE Rare /HPF (None Seen); RBC,URINE None Seen /HPF (0-5); SQUAMOUS EPITHELIAL CELL,UR MOD Squamous (<= Few)
[2023-12-25 18:13] LABS: BUN - BLOOD UREA NITROGEN 14 mg/dL (6-20); CALCIUM 9.3 mg/dL (8.5-10.3); CARBON DIOXIDE - CO2 29 mmol/L (21-32); CHLORIDE 103 mmol/L (101-111); CHOLESTEROL 161 mg/dL; CREATININE 0.7 mg/dL (0.6-1.3); GFR - MDRD 91 (>89); GLUCOSE 143 mg/dL (74-104); HDL CHOLESTEROL 53 mg/dL; LDL CHOLESTEROL,CALCULATED 92 mg/dL; LDL/HDL RATIO 1.7 (<4.4); POTASSIUM 4.2 mmol/L (3.5-4.5); SODIUM 136 mmol/L (135-145); TRIGLYCERIDES 82 mg/dL (48-352); VLDL CHOLESTEROL 16 mg/dL
[2023-12-25 20:52] LABS: ESTIMATED AVERAGE GLUCOSE 209 mg/dL (70-100); HEMOGLOBIN A1c% 8.9 % (4.27-6.07)
== END 2023-12-25 11:08 | disposition home or self-care (01) ==
LOC: LAB.N 11:07
PROVIDERS: ATTEND Nurse Practitioner Family
DX: I10 Essential (primary) hypertension (principal); E11.65 Type 2 diabetes mellitus with hyperglycemia; E78.5 Hyperlipidemia, unspecified; R30.0 Dysuria
CPT/HCPCS: 36415; 80048; 80061; 81001; 81003; 83036; 83721; 87086

== ENCOUNTER 2024-01-23 14:00 | Outpatient (CLI) | payer OTHER ==
--- NOTE | 2024-01-24 09:25 | Mammography Report ---
BILATERAL DIGITAL DIAGNOSTIC MAMMOGRAM 3D/2D: 01/23/2024 CLINICAL: Baseline exam. Palpable right breast lump. No prior exams were available for comparison. Both breasts are heterogeneously dense, which may obscure small masses (category c / 51-75% glandular tissue). No significant masses, calcifications, or other findings are seen in either breast. IMPRESSION: INCOMPLETE: NEEDS ADDITIONAL IMAGING EVALUATION There is no abnormality seen in the right breast to correspond with the palpable abnormality, however , ultrasound is recommended. Based on the Tyrer Cuzick model (a risk assessment model) the patient's lifetime risk is 7.1% and her 10 year risk is 1.1%. According to the ACR, ACS, and NCCN guidelines, an annual breast MRI exam domenica g with mammogram is recommended if the patient's lifetime risk is 20% or greater. This exam was interpreted at Station ID: [id number]. NOTE: For mammograms, a report in lay terms will be sent to the patient. Approximately 15% of breast malignancies will not be visualized mammographically. In the management of a palpable breast mass, a negative mammogram must not discourage biopsy of a clinically suspicious lesion. Electronically Signed By: Prabhjot Sánchez M.D. lc/:01/23/2024 15:32:23 ACR BI-RADS Category 0: Incomplete 3340F PARENCHYMAL PATTERN: (D) - The breast(s) demonstrate(s) heterogeneously dense fibroglandular parenchy ma. BI-RADS CATEGORY: (0) - 0 Ultrasound [id number] Immediate follow-up LATERALITY: (B)
--- NOTE | 2024-01-24 09:25 | Ultrasound Report ---
LIMITED ULTRASOUND OF RIGHT BREAST: 01/23/2024 CLINICAL: Palpable right breast lump. Comparison is made to exam dated: 01/23/2024 mammogram - [facility]. Ultrasound of the right breast 5-6 o'clock region was performed. Parker scale images of the real-time examination were reviewed. No significant abnormalities were seen sonographically in the right breast. IMPRESSION: NEGATIVE There is no sonographic evidence of malignancy. There are no abnormalities seen in the right breast to correspond with the palpable abnormalities at 5 and 6 o'clock, however, clinical correlation and clinical followup are recommended. Return to annual mammogram screening schedule is recommended. This exam was interpreted at Station ID: [id number]. Electronically Signed By: Prabhjot Sánchez M.D. lc/:01/23/2024 15:32:51 letter sent: No_Letter Ultrasound BI-RADS: 1 Negative BI-RADS CATEGORY: (1) - 1 RECOMMENDATION: (ANNUAL) - Recommend routine annual screening mammography. [id number] return to screening LATERALITY: (B)
== END 2024-01-23 14:01 | disposition home or self-care (01) ==
LOC: DI 14:00
PROVIDERS: ATTEND Nurse Practitioner Family
DX: N63.14 Unspecified lump in the right breast, lower inner quadrant (principal); R92.333 Mammographic heterogeneous density, bilateral breasts